=== PATIENT | male | born 1990 | race Caucasian/White ===

== ENCOUNTER 2022-01-18 07:07 | Inpatient (IN) | payer BC ==
--- OUTSIDE RECORDS SUMMARY | 2022-01-18 07:12 | XMS REPORT | Continuity of Care Document ---
:1990 Author Organization [facility] t Address [address] [place] [address] Dr. Eaton [address] [place] [id number] Care Team Providers Name Role Phone NIRAJ BULLOCK Attending Clinician Unavailable 2, Ad[facility] Lab Attending Clinician Unavailable Niraj Bullock MD Attending Clinician Doctor Unassigned, [place] Attending Clinician Unavailable CHEMA Attending Clinician Unavailable Volodymyr Stacy DO Attending Clinician Uzair Blood MD Attending Clinician Sarahi Sumner Attending Clinician [phone] Lab, Adc Fam Pob I Attending Clinician Unavailable Caryl Juares Attending Clinician CHEMA Admitting Clinician Unavailable Uzair Blood MD Admitting Clinician Payers Payer Name Policy Type Policy Number Effective Date Expiration Date Panda ana ADALI TUCKER AETNA [id number] 2011 00:00:00 [place] [facility] [id number] 2018 00:00:00 [facility] [id number] 2018 00:00:00 Problems Condition Condition Condition Status Onset Resolution Last Treating Co mments Source Name Details Category Date Date Treatment Clinician Date Gastroesop Gastroesop Problem Active S weeny hageal hageal 5-11 Communi reflux Reflux 00:00: [facility] Chronic Problem Active [place] cough Cough 5-11 Communi 00:00: ty 00 [facility]osp[facility] Clinics Abdominal Abdominal Disease Active Uni vers pain pain 05-26 ity of 00:00: [place] 00 Medical Branch No known No known Disease Unive rs active active ity of problems problems [facility] Allergies, Adverse Reactions, Alerts Allergy Allergy Status Severity Reaction(s) Onset Inactive Treating Comm ents Source Name Type Date Date Clinician NO KNOWN Drug Active Univers ALLERGIE Class ity of S [facility] Social History Social Habit Start Date Stop Date Quantity Comments Source Exposure to Not sure [facility] SARS-CoV-2 [facility] (event) [place] Tobacco use and 2020-05-26 2020-05-26 Never used Universit y of exposure 00:00:00 00:00:00 [facility] Alcohol intake 2020-05-26 2020-05-26 Current [facility] 00:00:00 00:00:00 non-drinker of [facility] alcohol [place] (finding) Sex Assigned At [birth year] Universit y of 00:00:00 00:00:00 [facility] Smoking Status Start Date Stop Date Source Never smoker [facility] Medications Ordered Filled Start Stop Current Ordering Indication Dosage Frequency Signature Comments Components Source Medication Medication Date Date Medication? Clinician (SIG) Name Name barium 2020- No [id number] 680g 680 g, Uni vers sulfate 06-02 Oral, ity of (LIQUID E-Z 14:00: 13:39 ONCE, [facility] 60 % 00 :00 dose, Wed Med ical (w/v) oral 06/02/20 at [facility] suspension 0900, 680 g Routine FLUTICASONE Yes 1{tbl} Use 1 Uni vers PROPIONATE 3-25 tablet in ity of (FLONASE 22:47: each [place] ALLERGY nostril 2 Medical RELIEF (two) Branch NASAL) times daily. loratadine Yes 10mg Take 10 mg U nivers (CLARITIN) 3-25 by mouth ity o f 10 mg 22:47: daily. [place] tablet Medical Branch dexlansopra Yes Take by Uni vers zole 3-25 mouth ity of (DEXILANT 22:47: daily. [place] ORAL) 46 Medical Branch FLUTICASONE Yes 1{tbl} Use 1 Uni vers PROPIONATE 3-25 tablet in ity of (FLONASE 22:47: each [place] ALLERGY 46 nostril 2 Medical RELIEF (two) Branch NASAL) times daily. loratadine Yes 10mg Take 10 mg U nivers (CLARITIN) 3-25 by mouth ity o f 10 mg 22:47: daily. [place] tablet 46 Medical Branch dexlansopra Yes Take by Uni vers zole 3-25 mouth ity of (DEXILANT 22:47: daily. [place] ORAL) 46 Medical Branch FLUTICASONE Yes 1{tbl} Use 1 Uni vers PROPIONATE 3-25 tablet in ity of (FLONASE 22:47: each [place] ALLERGY 46 nostril 2 Medical RELIEF (two) Branch NASAL) times daily. loratadine Yes 10mg Take 10 mg U nivers (CLARITIN) 3-25 by mouth ity o f 10 mg 22:47: daily. [place] tablet 46 Medical Branch dexlansopra Yes Take by Uni vers zole 3-25 mouth ity of (DEXILANT 22:47: daily. [place] ORAL) 46 Medical Branch FLUTICASONE Yes 1{tbl} Use 1 Uni vers PROPIONATE 3-25 tablet in ity of (FLONASE 22:47: each [place] ALLERGY 46 nostril 2 Medical RELIEF (two) Branch NASAL) times daily. loratadine Yes 10mg Take 10 mg U nivers (CLARITIN) 3-25 by mouth ity o f 10 mg 22:47: daily. [place] tablet 46 Medical Branch dexlansopra Yes Take by Uni vers zole 3-25 mouth ity of (DEXILANT 22:47: daily. [place] ORAL) 46 Medical Branch FLUTICASONE Yes 1{tbl} Use 1 Uni vers PROPIONATE 3-25 tablet in ity of (FLONASE 22:47: each [place] ALLERGY 46 nostril 2 Medical RELIEF (two) Branch NASAL) times daily. loratadine Yes 10mg Take 10 mg U nivers (CLARITIN) 3-25 by mouth ity o f 10 mg 22:47: daily. [place] tablet 46 Medical Branch dexlansopra Yes Take by Uni vers zole 3-25 mouth ity of (DEXILANT 22:47: daily. [place] ORAL) 46 Medical Branch FLUTICASONE Yes 1{tbl} Use 1 Uni vers PROPIONATE 3-25 tablet in ity of (FLONASE 22:47: each [place] ALLERGY nostril 2 Medical RELIEF (two) Branch NASAL) times daily. loratadine Yes 10mg Take 10 mg U nivers (CLARITIN) -25 by mouth ity o f 10 mg 22:47: daily. [place] tablet 46 Medical Branch dexlansopra Yes Take by Uni vers zole 3-25 mouth ity of (DEXILANT 22:47: daily. [place] ORAL) 46 Medical Branch silver 2020- No 1{appli Apply 1 Univ ers nitrate 05-27 cator} Applicator ity of applicator 21:35: 00:00 to area(s) [place] 56 :00 once now. Medical Branch omeprazole No 40mg Take 40 mg Univers 40 mg 05-27 by mouth ity of capsule 21:35: 00:00 daily. [place] 56 :00 Medical Branch cefTRIAXone Yes 1000mg 1,000 mg, Univers (ROCEPHIN) 3-25 IV ity of 1,000 mg in 16:45: Piggyback, [place] NaCl 0.9% 00 Q24H ABX, Medic al (NS) 50 mL First dose Bra nch MINI-BAG on [place] 05/27/20 at 1145, Until Discontinu ed, 50 mL
R ovi for Anti-Infec tive: Empiric Therapy for Suspected Infection< br>Empiric Therapy Site: Abdominal< br>Duratio n of therapy: 7 days metroNIDAZO Yes 500mg 500 mg, IV Univers LE in NaCl 3-25 Infusion, ity of (iso-os) 16:45: Q8H ABX, [place] (FLAGYL 00 First dose Medica l I.V.) RTU on [place] Branch IV infusion 05/27/20 at 500 mg 1145, Until Discontinu ed, 100 mL
Reas on for Anti-Infec tive: Empiric Therapy for Suspected Infection< br>Empiric Therapy Site: Abdominal< br>Duratio n of therapy: 7 days D5W 0.45% Yes IV Univers NaCl 3-25 Infusion, ity of (1/2NS) 1 L 15:45: at 75 [place] + KCL 20 00 mL/hr, Medical mEq CONTINUOUS Branch , Starting [place] 05/27/20 at 1045, Until Discontinu ed, Routine pantoprazol Yes 40mg 40 mg, Univ ers e 3-25 Oral, ity of (PROTONIX) 14:00: DAILY, [place] EC tablet 00 First dose Medi ori 40 mg on [place] Branch 05/27/20 at 0900, Until Discontinu ed, Routine acidophilus Yes [id number] 1g Take 1 Univers 100 million 3-25 tablet by ity of cell tablet 00:00: mouth 2 [place] 00 (two) Medical times Branch daily. acidophilus Yes [id number] 1g Take 1 Univers 100 million 3-25 tablet by ity of cell tablet 00:00: mouth 2 [place] 00 (two) Medical times Branch daily. acidophilus Yes [id number] 1g Take 1 Univers 100 million 3-25 tablet by ity of cell tablet 00:00: mouth 2 [place] 00 (two) Medical times Branch daily. acidophilus Yes [id number] 1g Take 1 Univers 100 million 3-25 tablet by ity of cell tablet 00:00: mouth 2 [place] 00 (two) Medical times Branch daily. acidophilus Yes [id number] 1g Take 1 Univers 100 million 3-25 tablet by ity of cell tablet 00:00: mouth 2 [place] 00 (two) Medical times Branch daily. acidophilus Yes [id number] 1g Take 1 Univers 100 million 3-25 tablet by ity of cell tablet 00:00: mouth 2 Liabn as 00 (two) Medical times Branch daily. levoFLOXaci 2020- No [id number] 500mg Take 1 Univers n 500 mg 3-25 04-05 tablet by ity o f tablet 00:00: 04:59 mouth [place] 00 :00 every 24 Medical (twenty-fo Branch ur) hours for 10 days. metroNIDAZO 0 2020- No [id number] 500mg Take 1 Univers LE 500 mg 3-25 04-05 tablet by ity of tablet 00:00: 04:59 mouth 2 [place] 00 :00 (two) Medical times Branch daily for 10 days. levoFLOXaci 2020- No [id number] 500mg Take 1 Univers n 500 mg 05-27-05 tablet by ity o f tablet 00:00: 04:59 mouth [place] 00 :00 every 24 Medical ([facility] ur) hours for 10 days. metroNIDAZO 2020-2020- No [id number] 500mg Take 1 Univers LE 500 mg 05-27-05 tablet by ity of tablet 00:00: 04:59 mouth 2 [place] 00 :00 (two) Medical times Branch daily for 10 days. levoFLOXaci 2020- No [id number] 500mg Take 1 Univers n 500 mg 3-25 -05 tablet by ity o f tablet 00:00: 04:59 mouth [place] 00 :00 every 24 Medical ([facility] ur) hours for 10 days. metroNIDAZO 2020- No [id number] 500mg Take 1 Univers LE 500 mg -27 06-05 tablet by ity of tablet 00:00: 04:59 mouth 2 [place] 00 :00 (two) Medical times Branch daily for 10 days. piperacilli 2020- No 3.375g 3.375 g, Univers n-tazobacta 05-26- IV ity of m (ZOSYN) 22:15: 15:33 [place]back, [place] 3.375 g in 00 :50 Q6H ABX, Medic al NaCl 0.9% First dose Bran ch (NS) 100 mL on Sun MINI-BAG 05/26/20 at 1715, Until Discontinu ed, 100 mL
R ovi for Anti-Infec tive: Empiric Therapy for Suspected Infection< br>Empiric Therapy Site: Abdominal< br>Duratio n of therapy: 7 days D5W 0.45% 2020- No IV Univers NaCl 05-26 Infusion, ity of (1/2NS) 1 L 22:15: 15:34 at 125 [place] + KCL 20 00 :06 mL/hr, Medical mEq CONTINUOUS Branch , Starting 05/26/20 at 1715, Until [place] 05/27/20 at 1034, Routine enoxaparin Yes 30mg 30 mg, Unive rs (LOVENOX) 05-26 Subcutaneo ity of injection 22:00: us, DAILY, [place] 30 mg 00 First dose Medical on Sun Branch 05/26/20 at 1700, Until Discontinu ed, Routine metroNIDAZO 2020- No 500mg 500 mg, IV Univers LE in NaCl 05-26 Piggyback, it y of (iso-os) 16:30: 21:11 Q8H ABX, [place] (FLAGYL 00 :43 First dose Medica l I.V.) RTU on Sun IV infusion 05/26/20 at 500 mg 1130, Until Discontinu ed, 100 mL
R ovi for Anti-Infec tive: Empiric Therapy for Suspected Infection< br>Empiric Therapy Site: Abdominal< br>Duratio n of therapy: 7 days levoFLOXaci 2020- No 750mg 750 mg, IV Univers n in D5W 05-26 Piggyback, ity of (LEVAQUIN) 16:30: 21:11 Q24H ABX, [place] 750 mg/150 00 :43 First dose Med ical mL on Sun Branch Piggyback 05/26/20 at 750 mg 1130, Until Discontinu ed, 150 mL
R ovi for Anti-Infec tive: Empiric Therapy for Suspected Infection< br>Empiric Therapy Site: Abdominal< br>Duratio n of therapy: 72 hours morpHINE 2020- No 4mg 4 mg, Slow Un walt injection 4 05-26 IV Push, ity of mg 15:45: 14:50 ONCE, 1 00 :00 dose, Sun Medical 05/26/20 at Branch 1045, STAT NaCl 0.9% 2020- No 1000mL at 125 Uni vers (NS) IV 05-26 mL/hr, IV ity of infusion 15:15: 21:12 Infusion, [place] 1,000 mL 00 :21 CONTINUOUS Medic al , Starting Branch Sun05/26/20 at 1015, Until Sun05/26/20 at 1612, Routine ondansetron Yes 4mg 4 mg, Slow Univers (ZOFRAN 05-26 IV Push, ity of (PF)) 15:06: Q6HPRN, [place] injection 4 46 Starting Medi ori mg [facility] 05/26/20 at 1006, Until Discontinu ed, Routine, Nausea and Vomiting (N/V) acetaminoph Yes 650mg 650 mg, Un walt en 05-26 Oral, ity of (TYLENOL) 15:06: Q6HPRN, [place] tablet 650 31 Starting Medic al mg [facility] 05/26/20 at 1006, Until Discontinu ed, Routine, Pain (scale 1-3) dicyclomine Yes 10mg 10 mg, Univ ers (BENTYL) 05-26 Oral, QID, ity o f capsule 10 13:00: First dose [place] mg 00 on [facility] 05/26/20 at Branch 0800, Until Discontinu ed, Routine piperacilli 2020- No 3.375g 3.375 g, Univers n-tazobacta 05-26 IV ity of m (ZOSYN) 12:45: 12:29 Piggyback, [place] 3.375 g in 00 :00 ONCE, 1 Medica l NaCl 0.9% dose, [facility] Branc h (NS) 100 mL 05/26/20 at MINI-BAG 0745, 100 mL
Reas on for Anti-Infec tive: Empiric Therapy for Suspected Infection< br>Empiric Therapy Site: Abdominal< br>Duratio n of therapy: 72 hours ondansetron 2020- No 4mg 4 mg, Slow Univers (ZOFRAN 05-26 IV Push, ity of (PF)) 12:15: 11:01 ONCE, 1 [place] injection 4 00 :00 dose, Wed Med ical mg 05/26/20 at Branch 0715, ERICA iohexol 2020- No [id number] 120mL 120 mL, Univers (OMNIPAQUE 05-26 Intravenou it y of 350 11:30: 11:30 s, ONCE, 1 [place] BULK-150 00 :00 dose, Wed Medica l mL) 05/26/20 at [place] injection 0630, 120 mL Routine NaCl 0.9% 2020- No 1000mL at 999 Uni vers (NS) bolus 3-24 03-24 mL/hr, ity of infusion 11:00: 13:00 1,000 mL, [place] 1,000 mL 00 :00 IV Medical Infusion, Branch ONCE, 1 dose, 05/26/20 at 0600, STAT morpHINE 2020-0 2020- No 4mg 4 mg, Slow Un walt injection 4 05-26-24 IV Push, ity of mg 10:53: 15:07 Q4HPRN, [place] 24 :02 Starting Medical Wed Branch 05/26/20 at 0553, Until Sun05/26/20 at 1007, Routine, Pain (scale 7-10) FLUTICASONE 2016- Yes 1{tbl} Use 1 Uni vers PROPIONATE 6-01 tablet in ity of (FLONASE 19:34: each [place] ALLERGY 13 nostril 2 Medical RELIEF (two) Branch NASAL) times daily. silver Yes 1{appli Apply 1 Unive rs nitrate 6-01 cator} Applicator ity of applicator 19:34: to area(s) [place] 13 once now. Medical Branch FLUTICASONE 2016- Yes 1{tbl} Use 1 Uni vers PROPIONATE 6-01 tablet in ity of (FLONASE 19:34: each [place] ALLERGY 13 nostril 2 Medical RELIEF (two) Branch NASAL) times daily. silver Yes 1{appli Apply 1 Unive rs nitrate 6-01 cator} Applicator ity of applicator 19:34: to area(s) [place] 13 once now. Medical Branch gabapentin 2017- Yes 300mg Take 1 Univ ers 300 mg 3-02 capsule by ity of capsule 00:00: mouth [place] 00 every 8 Medical (eight) Branch hours as needed for Pain (scale 1-3). For pain scale 1-3 naproxen 2017-0 Yes 500mg Take 1 Univer s 500 mg 3-02 tablet by ity of tablet 00:00: mouth [place] 00 every 8 Medical (eight) Branch hours as needed for Pain (scale 4-6). HYDROmorphO 2017-0 Yes 1mg Take 0.5 Un walt ne 3-02 tablets by ity of (DILAUDID) 00:00: mouth [place] 2 mg tablet 00 every 4 Medic al (four) Branch hours as needed for Pain (scale 7-10). HYDROmorphO 2017- Yes 1mg Take 0.5-1 Univers ne 2 mg 3-02 tablets by ity of tablet 00:00: mouth [place] 00 every 4 Medical (four) Branch hours as needed for Pain (scale 7-10). gabapentin Yes 300mg Take 1 Univ ers 300 mg 3-02 capsule by ity of capsule 00:00: mouth [place] 00 every 8 Medical (eight) Branch hours as needed for Pain (scale 1-3). For pain scale 1-3 naproxen Yes 500mg Take 1 Univer s 500 mg 3-02 tablet by ity of tablet 00:00: mouth [place] 00 every 8 Medical (eight) Branch hours as needed for Pain (scale 4-6). HYDROmorphO Yes 1mg Take 0.5 Un walt ne 3-02 tablets by ity of (DILAUDID) 00:00: mouth [place] 2 mg tablet 00 every 4 Medic al (four) Branch hours as needed for Pain (scale 7-10). HYDROmorphO Yes 1mg Take 0.5-1 Univers ne 2 mg 3-02 tablets by ity of tablet 00:00: mouth [place] 00 every 4 Medical (four) Branch hours as needed for Pain (scale 7-10). gabapentin 2020- No 300mg Take 1 Uni vers 300 mg 3-02 03-25 capsule by ity of capsule 00:00: 00:00 mouth [place] 00 :00 every 8 Medical (eight) Branch hours as needed for Pain (scale 1-3). For pain scale 1-3 naproxen 2017-2020- No 500mg Take 1 Unive rs 500 mg 3-02 03-25 tablet by ity of tablet 00:00: 00:00 mouth [place] 00 :00 every 8 Medical (eight) Branch hours as needed for Pain (scale 4-6). HYDROmorphO 2017-0 2020- No 1mg Take 0.5 U nivers ne 3-02 03-25 tablets by ity of (DILAUDID) 00:00: 00:00 mouth [place] 2 mg tablet 00 :00 every 4 Medic al (four) Branch hours as needed for Pain (scale 7-10). HYDROmorphO 2017-0 2020- No 1mg Take 0.5-1 Univers ne 2 mg 3-04 07-25 tablets by ity o f tablet 00:00: 00:00 mouth [place] 00 :00 every 4 Medical (four) Branch hours as needed for Pain (scale 7-10). naproxen Yes 550mg Take 1 Univer s sodium 550 3-01 tablet by ity of mg tablet 00:00: mouth 2 00 (two) Medical times Branch daily with meals. naproxen Yes 550mg Take 1 Univer s sodium 550 3-01 tablet by ity of mg tablet 00:00: mouth 2 00 (two) Medical times Branch daily with meals. naproxen No 550mg Take 1 Unive rs sodium 550 3-03 07-25 tablet by ity of mg tablet 00:00: 00:00 mouth 2 [place] 00 :00 (two) Medical times Branch daily with meals. Flonase Flonase No Flonase [place] [facility] Allergy Commun i Relief Relief Relief [facility] Vital Signs Vital Name Observation Time Observation Value Comments Source Systolic blood 2020-05-27 20:09:00 115 mm[Hg] Univer sity [facility] Diastolic blood 2020-05-27 20:09:00 72 mm[Hg] Unive rsity [facility] Heart rate 2020-05-27 20:09:00 66 /min [facility] Body temperature 2020-05-27 20:09:00 36.61 Alyce [facility] Respiratory rate 2020-05-27 20:09:00 18 /min [facility] Oxygen saturation in 2020-05-27 20:09:00 100 /min [facility] Arterial blood by [facility] Pulse oximetry Branch Body weight 2020-05-27 08:49:00 71.986 kg [facility] BMI 2020-05-27 08:49:00 26.41 kg/m2 [facility] Body height 2020-05-26 15:43:00 165.1 cm [facility] BP Diastolic 2020-05-19 00:00:00 72 mm[Hg] Joshua Lanier [facility] s Height 2020-05-19 00:00:00 65 [in_i] [facility] s BMI (Body Mass 2020-05-19 00:00:00 25.7 kg/m2 [facility] s BP Systolic 2020-05-19 00:00:00 110 mm[Hg] [facility] s Body Weight 2020-05-19 00:00:00 2470.4 [oz_av] [facility] s Procedures Procedure Date / Time Performing Clinician Source Performed FERRITIN SERUM 2020-07-06 14:51:00 Niraj Bullock [facility] IRON 2020-07-06 14:51:00 Niraj Bullock [facility] VITAMIN B12, LEVEL 2020-07-06 14:51:00 Niraj Bullock [facility] FOLATE 2020-07-06 14:51:00 Niraj Bullock [facility] TOTAL IRON BINDING 2020-07-06 14:51:00 Niraj Bullock [facility] COMP. METABOLIC PANEL 2020-07-06 14:51:00 Niraj Bullock [facility] ([id number]) [facility] SEDIMENTATION RATE 2020-07-06 14:51:00 Niraj Bullock [facility] CBC WITH DIFF 2020-07-06 14:51:00 Niraj Bullock [facility] HEPATITIS B SURFACE 2020-07-06 14:51:00 Niraj Bullock [facility] ANTIBODY [facility] HEPATITIS B SURFACE 2020-07-06 14:51:00 Niraj Bullock [facility] ANTIGEN [facility] Branch HCV ANTIBODY 2020-07-06 14:51:00 Niraj Bullock [facility] HBC ANTIBODY (IGM & IGG) 2020-07-06 14:51:00 Niraj Bullock [facility] HAV ANTIBODY (IGG AND 2020-07-06 14:51:00 Niraj Bullock [facility] IGM) [facility] VITAMIN D, 25-OH 2020-07-06 14:51:00 Niraj Bullock [facility] HIV 1/2 AG-AB WITH REFLEX 2020-07-06 14:51:00 Zora Bullock [facility] PHYSICIAN ORDERS 2020-07-06 05:01:00 Doctor Unassigned, [facility] [place] UPPER GI SERIES 2020-06-02 13:50:17 Niraj Bullock [facility] [place] BARIUM SWALLOW 2020-06-02 13:47:48 Sofi [facility] ESOPHAGUS [facility] Branch XR CHEST 2 VW 2020-05-27 19:03:43 Niraj Bullock [facility] CLOSTRIDIUM DIFFICILE 2020-05-27 15:21:00 Jeremi [facility] TOXIN [facility] C-REACTIVE PROTEIN 2020-05-27 11:41:00 Blake Larkin [facility] BASIC METABOLIC PANEL 2020-05-27 11:41:00 Uzair Blood [facility] (NA, K, CL, CO2, GLUCOSE, Medica l Branch BUN, CREATININE, CA) CBC WITH DIFF 2020-05-27 11:41:00 Uzair Blood [facility] CT ABDOMEN PELVIS W 2020-05-26 11:22:32 Volodymyr Stacy [facility] CONTRAST [facility] LIPASE 2020-05-26 10:58:00 Singer [facility] COMP. METABOLIC PANEL 2020-05-26 10:58:00 Singer [facility] ([id number]) Medical Branch LIPID PANEL ([id number])(TOTAL 2020-05-26 10:58:00 Volodymyr Stacy [facility] CHOLESTEROL, Medical Branch TRIGLYCERIDES, HDL) CBC WITH DIFF 2020-05-26 10:58:00 Singer [facility] URINALYSIS 2020-05-26 10:58:00 Singer [facility] COVID-19 (ID NOW RAPID 2020-05-26 10:58:00 Volodymyr Stacy [facility] TESTING) Medical Branch LAB ONLY COVID 2020-05-26 10:58:00 Singer Volodymyr [facility] INTERPRETATION [facility] NOTICE OF PRIVACY 2020-05-26 10:41:26 Doctor Lor Baez [facility] [place] PRACTICES [place] [facility] CONSENT/REFUSAL FOR 2020-05-26 10:40:53 Doctor Leonor Baez [facility] DIAGNOSIS AND TREATMENT [place] [facility] Plan of Care Planned Activity Planned Date Details Comments Source Diagnostic Test 2020-05-19 rapid SARS CoV 2 Ag, Swee [facility] Pending 00:00:00 QL [place], respiratory Hospital Clinics specimen [code = rapid SARS CoV 2 Ag, QL [place], respiratory specimen] Instructions [facility] Clinic s Encounters Start End Encounter Admission Attending Care Care Encounter Source Date/Time Date/Time Type Type Clinicians Facility Department ID 2021-01-02 Emergency [facility] [id number] Univers 08:03:57 ity of [facility] 2020-07-06 2020-07-06 Outpatient R KELLY [facility] [id number] Univers 10:15:00 10:15:00 NIRAJ Laughlin [facility] 2020-07-06 2020-07-06 Arborist 2, Adc Lab [facility] [id number] Univers 09:28:56 09:43:56 Visit Niraj Bullock 350.1.1 3.10 ity of [place] [id number] [place] Profess[place] [id number] Mi dical [facility] [address] Branch Building 2020-07-06 2020-07-06 Orders Doctor MAURILIO [id number] Univers 00:00:00 00:00:00 Only CONOR Baez [id number] ity of [place] [facility] [id number] [place] [id number] [place] [address] Branch 2020-06-06 2020-06-06 Outpatient [facility] 287 [place] 01:03:00 01:03:00 _L 404 Commun i ty Hospita l Clinics 2020-06-02 2020-06-02 [facility] [id number] Univers 07:45:20 23:59:00 Encounter Niraj laughlin [id number] ity of [place] [id number] [facility] [id number] [facility] 807 [place] 2020-06-02 2020-06-02 [facility] [id number] Univers 07:43:14 07:44:00 Encounter Niraj laughlin [id number] ity of [place] [id number] [facility] [id number] [facility] 807 Branch 2020-06-02 2020-06-02 Outpatient R [facility] [id number] Univers 00:00:00 00:00:00 NIRAJ Laughlin o f [facility] 2020-05-26 2020-05-27 Emergency Volodymyr Stacy [facility] [id number]. [id number] Univers 05:43:00 17:47:00 Uzair Blood [id number] ity of [place] [id number] [facility] [id number] [facility] 081 Branch 2020-05-19 2020-05-19 Outpatient [facility] 287 0 [place] 10:57:00 10:57:00 _L 317 Commun i ty Hospita l Clinics 2020-05-19 2020-05-19 Outpatient [facility] 1e7 [id number] 00:00:00 00:00:00 , Sarahi [id number] Roselyn [id number] 2020-05-19 2020-05-19 Sarahi Dempsey [facility] [place] [facility] [place] 202 [id number] [place] 00:00:00 00:00:00 [facility] ayde burgess, ZACKP-C: [facility] - ty [address] [place] [address] Clinics [address], [place] [address] , Ph. 2020-04-10 2020-04-10 Laboratory Lab, Adc Fam Pob I [facility] [id number]. [id number] Univers 09:24:25 09:44:25 Only [place], Caryl [facility] [id number] ity of [place] [id number] [place] as Professio [id number] [facility] 044 [place] Office Building One 2020-04-10 2020-04-10 Outpatient R [facility] [facility] [id number] [employer] 09:40:00 09:40:00 ity of [facility] 2020-04-10 2020-04-10 Letter Doctor MAURILIO [id number] Univers 00:00:00 00:00:00 (Out) Unassigned, CONOR [id number] ity of [place] [facility] [id number] [place] as [phone] [address] Results Test Description Test Time Test Comments Results Result Comments Source FOLATE 2020-07-07 01:36:38 Test Item Value Reference Range Interpretation Comme nts FOLATE SER (test code = 5727124676) >20.0 3.0-20.0 H Lab Interpretation (test code = 58607-4) [facility]normal [facility]2020-07-07 01:19:14 Test Item Value Reference Range Interpretation Comments HAV Total (test code = 6737363575) Negative HAVT Semi-Quantitative (test code = 6145575495) [facility] SURFACE [id number] 01:19:14 Test Item Value Reference Range Interpretation Comments HBsAB (test code = Positive 0167832203) HBsAb >1000.00 mIU/mL Semi-Quantitative (test code = 7114842599) MAT (test code = Interpretation: MAT) ?Hepatitis B Surface Antibody ? Negative - Patient is considered to be not immune to infection with HBV. ? ? Positive - Anti-HBs detected at greater than or equal to 12 mIU/mL. ?Patient is considered to be immune to infection with HBV. ? [facility] (IGM & IGG)2020-07-07 01:19:14 Test Item Value Reference Range Interpretation Comments HBC (test code = 2535069371) Negative HBC Semi-Quantitative (test code = 4074477635) [facility] [id number] 01:19:14 Test Item Value Reference Range Interpretation Comments HCV Ab (test code = 94442-7) Negative HCV Semi-Quantitative (test code = 01849-1) [facility] B12, [id number] 01:16:52 Test Item Value Reference Range Interpretation Comments VIT B12 (test code = 541 pg/mL 240-930 8930015525) MAT (test code = MAT) Biotin has been reported to cause a positive bias, interpret results relative to patient's use of biotin. Lab Interpretation (test Normal code = 82222-6) [facility] SURFACE [id number] 01:02:08 Test Item Value Reference Range Interpretation Comments HBsAg Semi-Quantitative (test code = Negative Negative 5195-3) [facility] D, [id number] 00:56:30 Test Item Value Reference Range Interpretation Comments VIT D 25OH (test code = 31 ng/mL 25-80 25896-4) MAT (test code = MAT) Deficiency: <20 ng/mLInsufficiency : 20-24 ng/mLOptimal: 25-80 ng/mL Lab Interpretation (test Normal code = 36038-2) [facility] CenterSEDIMENTATION [id number] 17:04:51 Test Item Value Reference Range Interpretation Comments ESR (test code = See_Comment H [Automated message] 0139228855) The system [employer] generated this result transmitted ref erence range: 0 - 10 m m/HR. The reference r rogelio was not used to interpret this result as normal/abnor mal. Lab Interpretation (test Abnormal code = 55431-8) [facility]HIV [facility]2 AG-AB WITH [id number] 16:58:31 Test Item Value Reference Range Interpretation Comments HIV Negative Negative Semi-quantitative (test code = 00943-6) MAT (test code = Non-reactive for HIV-1 MAT) antigen and HIV-1/HIV-2 antibodies. ?No laboratory evidence of HIV infection. ?Repeat in 2-4 weeks if acute HIV infection is suspected. [facility] CenterFERRITIN [id number] 16:52:32 Test Item Value Reference Range Interpretation Comments FERRITIN (test code = 44.8 ng/mL 18.0-464.0 4466884979) MAT (test code = MAT) Biotin has been reported to cause a negative bias, interpret results relative to patient's use of biotin. Lab Interpretation (test Normal code = 33458-3) [facility] [id number] 16:35:27 Test Item Value Reference Range Interpretation Comments TIBC (test code = 2897732605) 231 ug/dL 250-410 L % FE SAT (test code = 0413205783) 19 % 20-50 L Lab Interpretation (test code = Abnormal 89726-7) [facility]. METABOLIC PANEL (20976)2020-07-06 16:17:22 Test Item Value Reference Range Interpretation Comments NA (test code = 142 mmol/L 135-145 7365651505) K (test code = 4.7 mmol/L 3.5-5.0 0711802319) CL (test code = 102 mmol/L 98-108 7587381262) CO2 TOTAL (test code 30 mmol/L 23-31 = 9742826238) AGAP (test code = 2-16 0600327190) BUN (test code = 12 mg/dL 7-23 9683605891) GLUCOSE (test code = 105 mg/dL 70-110 3912607463) CREATININE (test code 0.77 mg/dL 0.60-1.25 = 9734890703) TOTAL BILI (test code 0.4 mg/dL 0.1-1.1 = 4318994646) CALCIUM (test code = 9.6 mg/dL 8.6-10.6 9777252318) T PROTEIN (test code 7.1 g/dL 6.3-8.2 = 4444969210) ALBUMIN (test code = 4.3 g/dL 3.5-5.0 7757822546) ALK PHOS (test code = 74 U/L 34-122 0052161570) ALTv (test code = 27 U/L 5-50 1742-6) AST(SGOT) (test code 25 U/L 1340 = 8076385251) eGFR (test code = mL/min/1.73m2 5418132830) MAT (test code = MAT) Association of Glomerular Filtration Rate (GFR) and Staging of Kidney Disease* + + +- +| GFR (mL/min/1.73 m2) ?| With Kidney Damage ?| ?Without Kidney Damage+ ------+ ----+ ------+| ?>90 ?| ?Stage one ?| ? Normal ?+ -+ + -+| ?60-89 ?| ?Stage two ?| ? Decreased GFR ? + + +- +| ?30-59 ?| ?Stage three ?| ? Stage three ? + + +- +| ?15-29 ?| ?Stage four ? | ? Stage four ?+ -+ + -+| ?<15 (or dialysis) ? ?| ?Stage five ? | ? Stage five ?+ -+ + -+ *Each stage assumes the associated GFR level has been in effect for at least three months. ?Stages 1 to 5, with or without kidney disease, indicate chronic kidney disease. Notes: Determination of stages one and two (with eGFR >59mL/min/1.73 m2) requires estimation of kidney damage for at least three months as defined by structural or functional abnormalities of the kidney, manifested by either:Pathological abnormalities or Markers of kidney damage (including abnormalities in the composition of the blood or urine or abnormalities in imaging tests). [facility] CenterIRON2021-[facility] 16:16:46 Test Item Value Reference Range Interpretation Comments IRON (test code = 0590539474) 43 ug/dL 50-160 L Lab Interpretation (test code = Abnormal 51172-5) [facility] WITH [id number] 15:23:58 Test Item Value Reference Range Interpretation Comments WBC (test code = See_Comment [Automated 5562-2) message] The sy stem which generated this result transmitted reference range : 4.20 - 10.70 10*3/?L. The reference range was not used to interpret this result as normal/abnormal . RBC (test code = See_Comment [Automated 789-8) message] The sy stem which generated this result transmitted reference range : 4.26 - 5.52 10*6/?L. The reference range was not used to interpret this result as normal/abnormal . HGB (test code = 13.7 g/dL 12.2-16.4 718-7) HCT (test code = 43.8 % 38.4-49.3 4544-3) MCV (test code = 83.7 fL 81.7-95.6 787-2) MCH (test code = 26.2 pg 26.1-32.7 785-6) MCHC (test code = 31.3 g/dL 31.2-35.0 786-4) RDW-SD (test code = 48.9 fL 38.5-51.6 43285-0) RDW-CV (test code = 15.9 % 12.1-15.4 H 788-0) PLT (test code = See_Comment [Automated 777-3) message] The sy stem which generated this result transmitted reference range : 150 - 328 10*3/ ?L. The reference r rogelio was not used to interpret this result as normal/abnormal . MPV (test code = 10.5 fL 9.8-13.0 35759-5) NRBC/100 WBC (test See_Comment [Automat ed code = 5528771684) message] The system which generated this result transmitted reference range : 0.0 - 10.0 /100 WBCs. The refer ence range was not u sed to interpret th is result as normal/abnormal . NRBC x10^3 (test code <0.01 See_Comment [Auto mated = 9300787302) message] The s ystem which generated this result transmitted reference range : 10*3/?L. The reference range was not used to interpret this result as normal/abnormal . GRAN MAT (NEUT) % 87.4 % (test code = 770-8) IMM GRAN % (test code 0.70 % = 3053744440) LYMPH % (test code = 8.3 % 736-9) MONO % (test code = 3.0 % 5905-5) EOS % (test code = 0.3 % 713-8) BASO % (test code = 0.3 % 706-2) GRAN MAT x10^3(ANC) 6.44 10*3/uL 1.99-6.95 (test code = 8246498035) IMM GRAN x10^3 (test 0.05 10*3/uL 0.00-0.06 code = 8465695601) LYMPH x10^3 (test code 0.61 10*3/uL 1.09-3.23 L = 731-0) MONO x10^3 (test code 0.22 10*3/uL 0.36-1.02 L = 742-7) EOS x10^3 (test code = <0.03 0.06-0.53 L 711-2) BASO x10^3 (test code <0.03 0.01-0.09 = 704-7) Lab Interpretation Abnormal (test code = 15185-9) [facility] UPPER GI [id number] 13:57:49HISTORY: Cough. Evaluate for GERD TECHNIQUE: Upper GI series is completed using barium and gas producingparticles. Multiple digital spot images of the gastroesophageal junction,stomach, duodenum and proximal jejunum are obtained the patient in severaldifferent positions. FINDINGS: No hiatal hernia or gastroesophageal reflux was detected. Stomachand duodenum show normal peristalsis, contour and mucosal lining. Noulcerations noted in the mucosa lining of the stomach, duodenum or theproximal jejunum. CONCLUSIONS: Normal study. [facility], Radiant Results Inft User - 06/02/2020 8:58 AM CDTHISTORY: Cough. Evaluate for GERDTECHNIQUE: Upper GI series is completed using barium and gas producingparticles. Multiple digital spot images of the gastroesophageal junction,stomach, duodenum and proximal jejunum are obtained the patient in severaldifferent positions.FINDINGS: No hiatal hernia or gastroesophageal reflux was detected. Stomachand duodenum show normal peristalsis, contour and mucosal lining. Noulcerations noted in the mucosa lining of the stomach, duodenum or theproximal jejunum. CONCLUSIONS: Normal study.[facility] BARIUM SWALLOW [id number] 13:55:03HISTORY: Chronic cough. Evaluate for GERD TECHNIQUE: Barium swallow/esophagram were obtained using ov erheadradiography technique as well as digital fluoroscopic technique done by nhwith the patient in multiple positions. FINDINGS: Swallowing function appear normal. Esophagus appears of normalsize and shape with no focal mucosal lesions. No stricture or diverticulaseen. I was unable to demonstrate hiatal hernia with Valsalva technique. Nogastroesophageal reflux was detected. Sluggish peristalsis was noted in thelower esophagus allowing prolonged retention of the barium in theesophageal lumen. CONCLUSIONS: Slightly sluggish peristalsis noted in the lower esophagus.Otherwise normal study. [facility], Radiant Results Inft User - 06/02/2020 8:56 AM CDTHISTORY: Chronic cough. Evaluate for GERDTECHNIQUE: Barium swallow/esophagram were obtained using overheadradiography technique as well as digital fluoroscopic technique done by nhwith the patient in multiple positions.FINDINGS: Swallowing function appear normal. Esophagus appears of normalsize and shape with no focal mucosal lesions. No stricture or diverti culaseen. I was unable to demonstrate hiatal hernia with Valsalva technique. Nogastroesophageal reflux was detected. Sluggish peristalsis was noted in thelower esophagus allowing prolonged retention ofthe barium in theesophageal lumen.CONCLUSIONS: Slightly sluggish peristalsis noted in the lower esoph rashida.Otherwise normal study.[facility] CenterCLOSTRIDIUM DIFFICILE [id number] 20:33:34 Test Item Value Reference Range Interpretation Comments Clostridioides (Clostridium) Negative Negative difficile (test code = 73351-5) Lab Interpretation (test code = Normal 50922-3) [facility] CenterXR CHEST 2 [id number] 19:34:38No acute cardiopulmonary abnormality. PROCEDURE: XR CHEST 2 VW 05/27/2020 1:52 PM CLINICAL INDICATION: Cough COMPARISON: Radiograph of 05/03/2016 TECHNIQUE: PA and lateral views of the chest FINDINGS: Thelungs are clear. There is no pleural effusion. ?No pneumothorax. The cardiac size is normal. No aggressive osseous lesion. [facility], Radiant Results Inft User - 05/27/2020 2:35 PM CDTPROCEDURE: XR CHEST 2 VW 05/27/2020 1:52 PMCLINICAL INDICATION: Cough COMPARISON: Radiograph of 05/03/2016TECHNIQUE: PA and lateral views of the chestFINDINGS:The lungs are clear. There is no pleural effusion. No pneumothorax. The cardiac size is normal. No aggressive osseous lesion.IMPRESSIONNo acute cardiopulmonary abnormality.[facility] CenterC-REACTIVE [id number] 17:43:52 Test Item Value Reference Range Interpretation Comments CRP (test code = 8953571487) 13.4 mg/dL <0.8 H Lab Interpretation (test code = Abnormal 25410-5) [facility] Metabolic Panel (NA, K, CL, CO2, GLUCOSE, BUN, CREATININE, CA)2020-05-27 12:26:34 Test Item Value Reference Range Interpretation Comments NA (test code = 140 mmol/L 135-145 5876427138) K (test code = 4.5 mmol/L 3.5-5.0 6986995851) CL (test code = 105 mmol/L 98-108 3319406345) CO2 TOTAL (test code = 30 mmol/L 23-31 7433996040) AGAP (test code = 2-16 8280046033) BUN (test code = 7 mg/dL 7-23 2132501111) GLUCOSE (test code = 116 mg/dL 70-110 H 2109600593) CREATININE (test code = 0.96 mg/dL 0.60-1.25 5304728381) CALCIUM (test code = 8.7 mg/dL 8.6-10.6 5601245357) eGFR Calculation mL/min/1.73m2 (Non-) (test code = 7347299512) eGFR Calculation mL/min/1.73m2 () (test code = 9393759716) MAT (test code = MAT) Association of Glomerular Filtration Rate (GFR) and Staging of Kidney Disease* + --+ --+ ------+| GFR (mL/min/1.73 m2) ?| With Kidney Damage ?| ?Without Kidney Damage+ --------+ --------+ +| ?>90 ?| ?Stage one ?| ? Normal ?+ ---+ ---+ -------+| ?60-89 ?| ?Stage two ?| ? Decreased GFR ? + --+ --+ ------+| ?30-59 ?| ?Stage three ?| ? Stage three ? + --+ --+ ------+| ?15-29 ?| ?Stage four ? | ? Stage four ?+ ---+ ---+ -------+| ?<15 (or dialysis) ? ?| ?Stage five ? | ? Stage five ?+ ---+ ---+ -------+ *Each stage assumes the associated GFR level has been in effect for at least three months. ?Stages 1 to 5, with or without kidney disease, indicate chronic kidney disease. Notes: Determination of stages one and two (with eGFR >59mL/min/1.73 m2) requires estimation of kidney damage for at least three months as defined by structural or functional abnormalities of the kidney, manifested by either:Pathological abnormalities or Markers of kidney damage (including abnormalities in the composition of the blood or urine or abnormalities in imaging tests). Lab Interpretation Abnormal (test code = 36372-4) [facility] with [id number] 12:15:11 Test Item Value Reference Range Interpretation Comments WBC (test code = See_Comment [Automated 1290-2) message] The sy stem which generated this result transmitted reference range : 4.20 - 10.70 10*3/?L. The reference range was not used to interpret this result as normal/abnormal . RBC (test code = See_Comment [Automated 679-8) message] The sy stem which generated this result transmitted reference range : 4.26 - 5.52 10*6/?L. The reference range was not used to interpret this result as normal/abnormal . HGB (test code = 11.1 g/dL 12.2-16.4 L 718-7) HCT (test code = 35.5 % 38.4-49.3 L 4544-3) MCV (test code = 81.4 fL 81.7-95.6 L 787-2) MCH (test code = 25.5 pg 26.1-32.7 L 785-6) MCHC (test code = 31.3 g/dL 31.2-35.0 786-4) RDW-SD (test code = 39.9 fL 38.5-51.6 77260-7) RDW-CV (test code = 13.4 % 12.1-15.4 788-0) PLT (test code = See_Comment [Automated 777-3) message] The sy stem which generated this result transmitted reference range : 150 - 328 10*3/ ?L. The reference r rogelio was not used to interpret this result as normal/abnormal . MPV (test code = 9.8 fL 9.8-13.0 19626-5) NRBC/100 WBC (test See_Comment [Automat ed code = 6665337160) message] The system which generated this result transmitted reference range : 0.0 - 10.0 /100 WBCs. The refer ence range was not u sed to interpret th is result as normal/abnormal . NRBC x10^3 (test code <0.01 See_Comment [Auto mated = 6947196022) message] The s ystem which generated this result transmitted reference range : 10*3/?L. The reference range was not used to interpret this result as normal/abnormal . GRAN MAT (NEUT) % 68.5 % (test code = 770-8) IMM GRAN % (test code 0.50 % = 5331900856) LYMPH % (test code = 15.5 % 736-9) MONO % (test code = 10.8 % 5905-5) EOS % (test code = 4.3 % 713-8) BASO % (test code = 0.4 % 706-2) GRAN MAT x10^3(ANC) 3.86 10*3/uL 1.99-6.95 (test code = 3917245854) IMM GRAN x10^3 (test 0.03 10*3/uL 0.00-0.06 code = 2865993143) LYMPH x10^3 (test code 0.87 10*3/uL 1.09-3.23 L = 731-0) MONO x10^3 (test code 0.61 10*3/uL 0.36-1.02 = 742-7) EOS x10^3 (test code = 0.24 10*3/uL 0.06-0.53 711-2) BASO x10^3 (test code <0.03 0.01-0.09 = 704-7) Lab Interpretation Abnormal (test code = 78744-5) [facility] COVID [id number] 03:03:50COVID DMT InterpretationInterpretation/Recommendations: Molecular NAAT Tests for Active Infection with the SARS-CoV-2 Virus: The patient has currently tested negative for the SARS-CoV-2 virus that causes COVID-19 illness. This most likely indicates that the patient does not have an active infection with the SARS-CoV-2 virus. However, infection is not completely ruled out as the false negative rate for molecular NAAT testing using a nasopharyngeal sample can be up to 30%, mostly dependent on the timing of sample collection in relation to illness onset and any deficiencies in sampling techniques. If the patient has symptoms concerning for COVID-19 illness, a repeat NAAT test (PCR, Rapid ID Now, etc.) should be performed, at which time the SARS-CoV-2 virus - if present - may have reached a detectable viral load (usually peaking by the end of the first week of symptoms). Tests for IgM and/or IgG Antibodies to the SARS-CoV-2 Virus: If the patient develops COVID-19 illness in the future, testing for IgM and IgG antibodies approximately 3 weeks after illness onset will likely indicate if the patient has produced antibodies to the SARS-CoV-2 virus. However, some patients may take longer to develop detectable antibodies, while some patients who were infected with SARS-CoV-2 may never develop antibodies. While antibodies to SARS-CoV-2 may provide some degree of immunity, at this time the strength and duration of the antibody response is unknown. Interpretation Result Comments:These interpretation comments are based upon all COVID-19 testing the patient has had at [facility], including molecular NAAT testing (more commonly known as PCR testing and Rapid ID Now testing) and antibody testing. It does not take into account any testingthat a patient has had outside of the [facility] medical record. [facility] LABORATORY SERVICESCOVID PpvikurYFGU-GoQ-6 NAAT (no units) ? ? Date ? Value ? 04/10/2020 ? Not Detected ? SARS-CoV-2 Rapid ID NOW (no units) ? ? Date ? Value ? 05/26/2020 ? Not Detected ? [facility] LABORATORY SERVICESCar[facility] CenterCT ABDOMEN PELVIS W [id number] 13:36:11 Extensive inflammatory changes involving the cecum and the appendix. Mostof the inflammatory changes appear epicentered at the cecum with upstreamdilatation of terminal ileum and fecalization of small bowel contentssuggesting stasis and delayed transit. Overall findings are thought torepresent enterocolitis and/or inflammatory bowel disease with active flarerather than appendicitis. Although, appendicitis is not completelyexcluded. No evidence of perforation. Preliminary Report Dictated by Resident: Eren Gary MD., have reviewed this study and agree with theabove report.EXAM: CT ABDOMEN AND PELVIS WITH CONTRAST HISTORY: RLQ abdominal pain, appendicitis suspected (Age >= 14y) COMPARISON: None. TECHNIQUE: Contiguous axial imaging from the level of the lung basesthrough the pubic symphysis was performed after the uncomplicatedadministration of intravenous contrast. Coronal and sagittal images werereconstructed. ?Auto mA and/or iterative reconstruction were used to reduceradiation dose. FINDINGS: LOWER THORAX: The lungs bases are clear. LIVER: No focal hepatic lesions. Mild fatty infiltration at the falciformligament. Normal contour. GALLBLADDER AND BILIARY TREE: Nobiliary ductal dilation. No radiopaquecholelithiasis. No gallbladder wall thickening. PANCREAS: No ductal dilation. SPLEEN: No splenomegaly. ADRENAL GLANDS: No adrenal nodules. KIDNEYS: No hydronephrosis, stones, or solid masses. GI TRACT:Considerable wall thickening and mucosal hyper enhancement is seen aboutthe cecum and appendix. Possibility inflammatory changes appear to beepicentered at the cecum rather than the appendix (although the appendix issurgically inflamed and measures 1.2 cm in transverse dimension). Nodiscernible mass is identified in this location. The proximal descending colon appears collapsed. Upstream small bowelcontents demonstrates fecalization suggesting stasis and delayed transit. The distal ileum is also dilated up to 4.2 cm. The sigmoid colon is decompressed with a short segment of wall thickening,likely reactive. A 1.5 x 2 cm fluid collection connects two segments of small bowel andfavors ?intraluminal fluid (2:97) over an abscess. PERITONEUM AND RETROPERITONEUM: Small volume free fluid about the rightlower quadrant and pelvis. No free air.LYMPH NODES: Several enlarged right lower quadrant lymph nodes areidentified, likely reactive. VESSELS: Unremarkable. PELVIS/BLADDER: Bladder is decompressed. BONES AND SOFT TISSUES: No suspicious lytic or sclerotic bony lesions. Noerosions of bilateral SI joints. [facility], Radiant Results Inft User - 05/26/2020 8:37 AM CDTEXAM: CTABDOMEN AND PELVIS WITH CONTRASTHISTORY: RLQ abdominal pain, appendicitis suspected (Age >= 14y) C OMPARISON: None.TECHNIQUE: Contiguous axial imaging from the level of the lung basesthrough the pubic symphysis was performed after the uncomplicatedadministration of intravenous contrast. Coronal and sagittal images werereconstructed. Auto mA and/or iterative reconstruction were used to reduceradiation dose.FINDINGS:LOWER THORAX: The lungs bases are clear. LIVER: No focal hepatic lesions. Mild fattyinfiltration at the falciformligament. Normal contour.GALLBLADDER AND BILIARY TREE: No biliary ductal dilation. No radiopaquecholelithiasis. No gallbladder wall thickening.PANCREAS: No ductal dilation.SPLEEN: No splenomegaly.ADRENAL GLANDS: No adrenal nodules.KIDNEYS: No hydronephrosis, stones, or solid masses.GI TRACT:Considerable wall thickening and mucosal hyper enhancement is seen aboutthe cecum and appendix. Possibility inflammatory changes appear to beepicentered at the cecum rather than the ap pendix (although the appendix issurgically inflamed and measures 1.2 cm in transverse dimension). Nodiscernible mass is identified in this location.The proximal descending colon appears collapsed. Upstream small bowelcontents demonstrates fecalization suggesting stasis and delayed transit. The distal i leum is also dilated up to 4.2 cm.The sigmoid colon is decompressed with a short segment of wall thickening,likely reactive.A 1.5 x 2 cm fluid collection connects two segments of small bowel andfavors intraluminal fluid (2:97) over an abscess.PERITONEUM AND RETROPERITONEUM: Small volume free fluid about the rightlower quadrant and pelvis. No free air.LYMPH NODES: Several enlarged right lower quadrantlymph nodes areidentified, likely reactive.VESSELS: Unremarkable.PELVIS/BLADDER: Bladder is decompressed.BONES AND SOFT TISSUES: No suspicious lytic or sclerotic bony lesions. Noerosions of bilateral SI joints.IMPRESSIONExtensive inflammatory changes involving the cecum and the appendix. Mostof the inflammatory changes appear epicentered at the cecum with upstreamdilatation of terminal ileum and fecalization of small bowel contentssuggesting stasis and delayed transit. Overall findings are thought to represent enterocolitis and/or inflammatory bowel disease with active flarerather than appendicitis.Although, appendicitis is not completelyexcluded. No evidence of perforation.Preliminary Report Dictated by Resident: Eren Babb MD., have reviewed this study and agree with theabove report.[facility] CenterURINALYSIS2021-03-24 11:37:30 Test Item Value Reference Range Interpretation Comments APPEARANCE (test code = Clear Clear 8617038581) COLOR (test code = Yellow Yellow 4620803358) PH (test code = 4.8-8.0 4650386731) SP GRAVITY (test code = 1.003-1.030 4775295900) GLU U QUAL (test code = Normal Normal 3513105450) BLOOD (test code = Negative Negative 7666006558) KETONES (test code = Negative Negative 0267181733) PROTEIN (test code = Negative Negative 2887-8) UROBILIN (test code = Normal Normal 7284877691) BILIRUBIN (test code = Negative Negative 3668213188) NITRITE (test code = Negative Negative 0237007106) LEUK ASHLEY (test code = Negative Negative 1703359012) RBC/HPF (test code = See_Comment [Autom ated message] 8963266007) The system [employer] generated this result transmitted ref erence range: 0 - 3 HP F. The reference range was not used to int erpret this result as normal/abnormal . WBC/HPF (test code = See_Comment [Autom ated message] 3906154932) The system [employer] generated this result transmitted ref erence range: 0 - 5 HP F. The reference range was not used to int erpret this result as normal/abnormal . BACTERIA (test code = Few Negative A 5500053808) MUCOUS (test code = Slight Negative LPF A 7862089426) Lab Interpretation (test Abnormal code = 86686-6) [facility] (27653)2020-05-26 11:37:05 Test Item Value Reference Range Interpretation Comments NA (test code = 134 mmol/L 135-145 L 7828259083) K (test code = 4.7 mmol/L 3.5-5.0 3551052345) CL (test code = 103 mmol/L 98-108 2824946951) CO2 TOTAL (test code = 28 mmol/L 23-31 5364784738) AGAP (test code = 2-16 1513784613) BUN (test code = 10 mg/dL 7-23 4399547902) GLUCOSE (test code = 113 mg/dL 70-110 H 6311316245) CREATININE (test code = 0.95 mg/dL 0.60-1.25 4975006908) TOTAL BILI (test code = 0.5 mg/dL 0.1-1.0 9103614988) CALCIUM (test code = 9.3 mg/dL 8.6-10.6 8839090657) T PROTEIN (test code = 7.8 g/dL 6.3-8.2 0688528804) ALBUMIN (test code = 4.2 g/dL 3.5-5.0 4559197810) ALK PHOS (test code = 96 U/L 34-122 4581202976) ALTv (test code = 21 U/L 5-50 1742-6) AST(SGOT) (test code = 24 U/L 13-40 8372897716) eGFR Calculation mL/min/1.73m2 (Non-) (test code = 7625614963) eGFR Calculation mL/min/1.73m2 () (test code = 4120352455) MAT (test code = MAT) Association of Glomerular Filtration Rate (GFR) and Staging of Kidney Disease* + --+ --+ ------+| GFR (mL/min/1.73 m2) ?| With Kidney Damage ?| ?Without Kidney Damage+ --------+ --------+ +| ?>90 ?| ?Stage one ?| ? Normal ?+ ---+ ---+ -------+| ?60-89 ?| ?Stage two ?| ? Decreased GFR ? + --+ --+ ------+| ?30-59 ?| ?Stage three ?| ? Stage three ? + --+ --+ ------+| ?15-29 ?| ?Stage four ? | ? Stage four ?+ ---+ ---+ -------+| ?<15 (or dialysis) ? ?| ?Stage five ? | ? Stage five ?+ ---+ ---+ -------+ *Each stage assumes the associated GFR level has been in effect for at least three months. ?Stages 1 to 5, with or without kidney disease, indicate chronic kidney disease. Notes: Determination of stages one and two (with eGFR >59mL/min/1.73 m2) requires estimation of kidney damage for at least three months as defined by structural or functional abnormalities of the kidney, manifested by either:Pathological abnormalities or Markers of kidney damage (including abnormalities in the composition of the blood or urine or abnormalities in imaging tests). Lab Interpretation Abnormal (test code = 38484-9) [facility] (24813)(TOTAL CHOLESTEROL, TRIGLYCERIDES, HDL)2020-05-26 11:29:56 Test Item Value Reference Range Interpretation Comments CHOL (test code = 143 mg/dL 120-200 5959048821) HDL (test code = 32 mg/dL >40 L 8310334390) HDLC RATIO (test code = See_Comment [Au tomated message] 6293610324) The system [employer] generated this result transmit maximilian reference range : <=5.0. The refe rence range was not u sed to interpret th is result as normal/abnormal . TRIG (test code = 85 mg/dL 30-170 7926034888) LDL CHOL (test code = 94 mg/dL See_Comment [Auto mated message] 39460-9) The system [employer] generated this result transmit maximilian reference range : <=160. The refe rence range was not u sed to interpret th is result as normal/abnormal . VLDL (test code = 17 mg/dL 5-60 0334036339) Lab Interpretation (test Abnormal code = 43511-6) [facility] 11:29:41 Test Item Value Reference Range Interpretation Comments LIPASE (test code = 2795771476) 41 U/L 0-220 Lab Interpretation (test code = Normal 75398-7) [facility] (ID NOW RAPID TESTING)2020-05-26 11:20:15 Test Item Value Reference Range Interpretation Comments SARS-CoV-2 Rapid ID NOW Not Detected Not Detected (test code = 23972-8) MAT (test code = MAT) ID NOW COVID-19 Assay is an isothermal nucleic acid amplification test intended for the qualitative detection of nucleic acid from SARS-CoV-2 viral RNA in nasopharyngeal ([employer]) specimens. It is used under Emergency Use Authorization (EUA) by FDA. The limit of detection (LOD) of the assay is 125 Genome Equivalents/mL. A positive result is indicative of the presence of SARS-CoV-2 RNA. ?Clinical correlation with patient history and other diagnostic information is necessary to determine patient infection status. A negative (Not Detected) result does not preclude SARS-CoV-2 infection. In patients with clinical symptoms and other tests that are consistent with SARS-CoV-2 infection, negative results should be treated as presumptive negative and a new specimen should be tested with alternative PCR molecular test. Invalid: Please collect a new specimen for repeat patient testing if clinically indicated. Lab Interpretation Normal (test code = 20523-8) [facility] WITH [id number] 11:05:56 Test Item Value Reference Range Interpretation Comments WBC (test code = See_Comment H [Automated 5890-2) message] The system which generated this result transmit maximilian reference range : 4.20 - 10.70 10*3/?L. The reference range was not used to interpret this result as normal/abnormal . RBC (test code = See_Comment [Automated 839-8) message] The system which generated this result transmit maximilian reference range : 4.26 - 5.52 10*6/?L. The reference range was not used to interpret this result as normal/abnormal . HGB (test code = 13.0 g/dL 12.2-16.4 718-7) HCT (test code = 41.3 % 38.4-49.3 4544-3) MCV (test code = 79.7 fL 81.7-95.6 L 787-2) MCH (test code = 25.1 pg 26.1-32.7 L 785-6) MCHC (test code = 31.5 g/dL 31.2-35.0 786-4) RDW-SD (test code = 38.4 fL 38.5-51.6 L 48116-8) RDW-CV (test code = 13.3 % 12.1-15.4 788-0) PLT (test code = See_Comment H [Automated 777-3) message] The system which generated this result transmit maximilian reference range : 150 - 328 10*3/ ?L. The reference range was not u sed to interpret th is result as normal/abnormal . MPV (test code = 9.6 fL 9.8-13.0 L 33021-2) NRBC/100 WBC (test See_Comment [Automat ed code = 5059610245) message] The system which generated this result transmit maximilian reference range : 0.0 - 10.0 /100 WBCs. The reference range was not used to interpret this result as normal/abnormal . NRBC x10^3 (test code <0.01 See_Comment [Auto mated = 0088254691) message] The system which generated this result transmit maximilian reference range : 10*3/?L. The reference range was not used to interpret this result as normal/abnormal . GRAN MAT (NEUT) % 84.5 % (test code = 770-8) IMM GRAN % (test code 0.50 % = 6999008527) LYMPH % (test code = 5.7 % 736-9) MONO % (test code = 8.6 % 5905-5) EOS % (test code = 0.5 % 713-8) BASO % (test code = 0.2 % 706-2) GRAN MAT x10^3(ANC) 11.06 10*3/uL 1.99-6.95 H (test code = 0636171143) IMM GRAN x10^3 (test 0.07 10*3/uL 0.00-0.06 H code = 4900420025) LYMPH x10^3 (test code 0.74 10*3/uL 1.09-3.23 L = 731-0) MONO x10^3 (test code 1.12 10*3/uL 0.36-1.02 H = 742-7) EOS x10^3 (test code = 0.06 10*3/uL 0.06-0.53 711-2) BASO x10^3 (test code 0.03 10*3/uL 0.01-0.09 = 704-7) Lab Interpretation Abnormal (test code = 03957-2) [facility] ([facility]OVID-19) Ag [Presence] in Respiratory specimen by Rapid [id number] 09:27:00 Test Item Value Reference Range Interpretation Comments SARS CoV 2 (test code = SARS CoV 2) negative [facility]"
[2022-01-18] MEDS ORDERED: FAMOTIDINE 20 MG/2 ML VIAL IV ONE (08:08)
[2022-01-18] MEDS ORDERED: ONDANSETRON 4 MG/2 ML VIAL ONE ×2 (08:08→17:06)
[2022-01-18] MEDS ORDERED: NA CHLORIDE 0.9% 1,000 ML ONE ×2 (08:08→11:15)
[2022-01-18] MEDS ORDERED: MORPHINE 4 MG/ML SYR ONE ×3 (08:09→17:06)
[2022-01-18 09:34] LABS: Absolute Lymphocytes (CBC) 1.2 K/uL (0.7-4.9); Hematocrit 44.9 % (39.6-49.0); Lymphocytes % 17.5 % (15.3-44.8); MCV 87.2 fL (80-100); MPV 9.1 fL (7.6-11.3); RBC Red Blood Cell Count 5.15 M/uL (4.33-5.43)
[2022-01-18 09:58] LABS: Albumin 3.3 g/dL (3.4-5.0); Bilirubin Total 0.5 mg/dL (0.2-1.0); Potassium 4.4 mmol/L (3.5-5.1); Protein, Total 6.8 g/dL (6.4-8.2)
--- NOTE | 2022-01-18 10:51 | RAD REPORT ---
EXAM DESCRIPTION: CT - Abdomen Pelvis W Contrast - 01/18/2022 10:19 am CLINICAL HISTORY: Abdominal pain COMPARISON: August 2021 TECHNIQUE: Computed axial tomography of the abdomen pelvis was obtained. 100 cc Isovue-300 was admin istered intravenously. Oral contrast was not requested which limits evaluation of bowel and appendix All CT scans are performed using dose optimization technique as appropriate and may include automated exposure control or mA/KV adjustment according to patient size. FINDINGS: The liver, spleen, pancreas, adrenal and kidneys appear unremarkable. Dilatation of distal ileum 5.4 centimeters. It contains stool. Wall is mildly thickened. Jejunum norm al caliber. Mild thickening of the wall of the cecum Small amount ascites. The bladder is distended. IMPRESSION: Moderate to marked dilatation distal ileum. Given the history of Crohn's disease this ma y be secondary to a stricture. Mild thickening of the wall of the distal ileum and cecum likely indicating inflammation
[2022-01-18] MEDS ORDERED: METRONIDAZOLE 500mg IVPB 500 MG/100 ML BAG IV ONE ×2 (11:15→16:59)
[2022-01-18] MEDS ORDERED: CIPROFLOXACIN 400mg IV 400 MG/200 ML BAG IV ONE (11:15)
[2022-01-18] MEDS ORDERED: METHYLPREDNISOLONE 125 MG INJ ONE (11:15)
--- NOTE | 2022-01-18 12:00 | ER ---
Nurse's Notes [facility] Kirsten Name: Jose Martin Fritz Age: 31 yrs Sex: Male : 1990 Arrival Date: 01/18/2022 Time: 07:09 Bed 17 Private MD: Diagnosis: Abdominal pain, Generalized;Crohn's disease of small intestine with intestinal obstruction-moderate to marked dilation distal ileum;Other and unspecified intestinal obstruction Presentation: 01/18 07:38 Chief complaint: Patient states: mid abd pain x 2 weeks, saw Dr. Sumner on Sunday and jl7 started cipro and flagyl, and instructed me to come to ED if pain continues. Denies N/V/D. Coronavirus screen: At this time, the client does not indicate any symptoms associated with coronavirus-19. Ebola Screen: No symptoms or risks identified at this time. Initial Sepsis Screen: Does the patient meet any 2 criteria? No. Patient's initial sepsis screen is negative. Does the patient have a suspected source of infection? No. Patient's initial sepsis screen is negative. Risk Assessment: Do you want to hurt yourself or someone else? Patient reports no desire to harm self or others. Onset of symptoms was January 04, 2022. 07:38 Method Of Arrival: Ambulatory [facility] 07:38 Acuity: FILIPE 3 jl7 Triage Assessment: 07:39 General: Appears in no apparent distress. uncomfortable, Behavior is calm, cooperative, jl7 appropriate for age. Pain: Complains of pain in umbilical area Pain currently is 8 out of 10 on a pain scale. GI: Reports lower abdominal pain, upper abdominal pain. Historical: - Allergies: 07:39 No Known Allergies; jl7 - Home Meds: 07:39 budesonide 3 mg oral CECX 1 caps TID [Active]; jl7 - PMHx: 07:39 Chron's; jl7 - PSHx: 07:39 None; jl7 - Immunization history:: Client reports receiving the 2nd dose of the Covid vaccine. - Social history:: Smoking status: Patient denies any tobacco usage or history of. - Family history:: not pertinent. Screenin:28 Abuse screen: Denies threats or abuse. Nutritional screening: No deficits noted. ll1 Tuberculosis screening: No symptoms or risk factors identified. Fall Risk IV access (20 points). Total Haq Fall Scale indicates No Risk (0-24 pts). Assessment: 08:20 Reassessment: No changes from previously documented assessment. Patient and/or family ll1 updated on plan of care and expected duration. Pain level reassessed. Patient is alert, oriented x 3, equal unlabored respirations, skin warm/dry/pink. 09:00 Reassessment: No changes from previously documented assessment. Patient and/or family ll1 updated on plan of care and expected duration. Pain level reassessed. Patient is alert, oriented x 3, equal unlabored respirations, skin warm/dry/pink. 10:10 Reassessment: No changes from previously documented assessment. Patient and/or family ll1 updated on plan of care and expected duration. Pain level reassessed. Patient is alert, oriented x 3, equal unlabored respirations, skin warm/dry/pink. 11:00 General: Appears in no apparent distress. comfortable, Behavior is calm, cooperative. tp1 Pain: Denies pain. Neuro: Level of Consciousness is awake, alert, obeys commands, Oriented to person, place, time, situation. Cardiovascular: Patient's skin is warm and dry. Respiratory: Airway is patent Respiratory effort is even, unlabored. Derm: Skin is pink, warm \T\ dry. Musculoskeletal: Circulation, motion, and sensation intact. 12:27 Reassessment: Patient appears in no apparent distress at this time. No changes from tp1 previously documented assessment. Patient is alert, oriented x 3, equal unlabored respirations, skin warm/dry/pink. Patient denies pain at this time. 13:22 Reassessment: Patient appears in no apparent distress at this time. No changes from tp1 previously documented assessment. Patient is alert, oriented x 3, equal unlabored respirations, skin warm/dry/pink. Patient denies pain at this time. 19:39 Reassessment: report given to Bridget MARTINS. tp1 Vital Signs: 07:38 BP 148 / 101; Pulse 91; Resp 17; Temp 98.3; Pulse Ox 100% ; Weight 66.68 kg; Height 5 jl7 ft. 5 in. (165.10 cm); Pain 8/10; 10:10 BP 129 / 91; Pulse 63; Resp 16; ll1 11:30 BP 120 / 86; Pulse 67; Resp 16; Pulse Ox 100% on R/A; tp1 12:30 BP 123 / 80; Pulse 70; Resp 16; Pulse Ox 100% on R/A; tp1 13:23 BP 127 / 87; Pulse 62; Resp 16; Pulse Ox 100% on R/A; tp1 07:38 Body Mass Index 24.46 (66.68 kg, 165.10 cm) jl7 ED Course: 07:09 Patient arrived in ED. am2 07:35 Salvatore Chambers MD is Attending Physician. conrado 07:39 Triage completed. jl7 07:41 Arm band placed on right wrist. jl7 07:48 Bhupendra Ibarra, LAKSHMI is Primary Nurse. ll1 08:09 Inserted saline lock: 20 gauge in right antecubital area, using aseptic technique. kr3 Blood collected. 09:28 Patient has correct armband on for positive identification. Bed in low position. Call ll1 light in reach. Side rails up X 1. Cardiac monitoring not applicable on this patient. 10:20 CT Abd/Pelvis - IV Contrast Only In Process Unspecified. EDMS 11:09 No provider procedures requiring assistance completed. tp1 11:48 transfer to [facility] initiated by dr Chambers. bd 12:26 Renetta Nava MD is Hospitalizing Provider. conrado Administered Medications: 08:17 Drug: NS 0.9% 1000 ml Route: IV; Rate: 1 bolus; Site: right antecubital; ll1 10:31 Follow up: Response: No adverse reaction; IV Status: Completed infusion; IV Intake: ll1 1000ml 08:17 Drug: Pepcid (famotidine) 20 mg Route: IVP; Site: right antecubital; ll1 10:31 Follow up: Response: No adverse reaction ll1 08:17 Drug: Zofran (Ondansetron) 4 mg Route: IVP; Site: right antecubital; ll1 10:31 Follow up: Response: No adverse reaction ll1 08:17 Drug: morphine 4 mg {Note: rass 0, pain 6/10.} Route: IVP; Infused Over: 4 mins; Site: ll1 right antecubital; 10:31 Follow up: Response: No adverse reaction ll1 10:10 Drug: morphine 4 mg {Note: rass 0, pain 7/10.} Route: IVP; Infused Over: 4 mins; Site: ll1 right antecubital; 10:32 Follow up: Response: No adverse reaction; Pain is decreased; RASS: Alert and Calm (0) ll1 11:22 Drug: SOLU-Medrol (methylPrednisoLONE) 125 mg Route: IVP; Site: right antecubital; tp1 12:25 Follow up: Response: No adverse reaction tp1 11:24 Drug: NS 0.9% 1000 ml Route: IV; Rate: 125 ml/hr; Site: right antecubital; tp1 18:48 Follow up: IV Status: Infusion continued upon admission tp1 11:27 Drug: Flagyl (metroNIDAZOLE) 500 mg Volume: 100 ml; Route: IVPB; Rate: 200 ml/hr; tp1 Infused Over: 30 mins; Site: right antecubital; 12:00 Follow up: IV Status: Completed infusion; IV Intake: 100ml tp1 12:06 Drug: Cipro (ciprofloxacin) 400 mg Volume: 200 ml; Route: IVPB; Infused Over: 60 mins; tp1 Site: right antecubital; 13:00 Follow up: IV Status: Completed infusion; IV Intake: 200ml tp1 Medication: 09:28 VIS not applicable for this client. ll1 Intake: 10:31 IV: 1000ml; Total: 1000ml. ll1 12:00 IV: 100ml; Total: 1100ml. tp1 13:00 IV: 200ml; Total: 1300ml. tp1 Outcome: 11:59 ER care complete, transfer ordered by . [facility] 12:28 Decision to Hospitalize by Provider. [facility] 16:00 Admitted to ER Hold. Please see [facility] for further documentation. tp1 16:00 Condition: good 16:00 Discharge instructions given to patient, Instructed on discharge instructions. 20:05 Patient left the ED. aa9 Signatures: Dispatcher [employer] EDMS Linda Kellogg Corey, MD MD cha Leal, Jahala RN RN [email or web address] Waleska Ramirez amBhupendra Morin RN RN ll1 Patricia Bernal RN RN tp1 Maggy Hemphill RN RN aa9 Linnea Benoit RN RN kr3
--- NOTE | 2022-01-18 12:00 | EDPHYS ---
Physician Documentation [facility] Name: Jose Martin Fritz Age: 31 yrs Sex: Male : 1990 Arrival Date: 01/18/2022 Time: 07:09 Bed 17 Private MD: CHUCK Physician Salvatore Chambers HPI: 01/18 11:45 This 31 yrs old Male presents to ER via Ambulatory with complaints of conrado Abdominal Pain. 11:45 The patient presents with abdominal pain in the lower abdomen. Onset: The conrado symptoms/episode began/occurred 7 day(s) ago. The symptoms do not radiate. Associated signs and symptoms: Pertinent positives: nausea. The symptoms are described as constant, crampy. Modifying factors: The symptoms are alleviated by remaining still, the symptoms are aggravated by food, movement. Severity of pain: At its worst the pain was moderate in the emergency department the pain is unchanged. The patient has experienced similar episodes in the past, several times. Historical: - Allergies: 07:39 No Known Allergies; jl7 - Home Meds: 07:39 budesonide 3 mg oral CECX 1 caps TID [Active]; jl7 - PMHx: 07:39 Chron's; jl7 - PSHx: 07:39 None; jl7 - Immunization history:: Client reports receiving the 2nd dose of the Covid vaccine. - Social history:: Smoking status: Patient denies any tobacco usage or history of. - Family history:: not pertinent. ROS: 11:45 Constitutional: Negative for fever, chills, and weight loss, Eyes: Negative for injury, conrado pain, redness, and discharge, ENT: Negative for injury, pain, and discharge, Neck: Negative for injury, pain, and swelling, Cardiovascular: Negative for chest pain, palpitations, and edema, Respiratory: Negative for shortness of breath, cough, wheezing, and pleuritic chest pain, Back: Negative for injury and pain, : Negative for injury, bleeding, discharge, and swelling, MS/Extremity: Negative for injury and deformity, Skin: Negative for injury, rash, and discoloration, Neuro: Negative for headache, weakness, numbness, tingling, and seizure, Psych: Negative for depression, anxiety, suicide ideation, homicidal ideation, and hallucinations, Allergy/Immunology: Negative for hives, rash, and allergies, Endocrine: Negative for neck swelling, polydipsia, polyuria, polyphagia, and marked weight changes. 11:45 Abdomen/GI: Positive for abdominal pain, nausea, of the umbilical area and right lower quadrant. Exam: 11:45 Constitutional: This is a well developed, well nourished patient who is awake, alert, conrado and in no acute distress. Head/Face: Normocephalic, atraumatic. Eyes: Pupils equal round and reactive to light, extra-ocular motions intact. Lids and lashes normal. Conjunctiva and sclera are non-icteric and not injected. Cornea within normal limits. Periorbital areas with no swelling, redness, or edema. ENT: Nares patent. No nasal discharge, no septal abnormalities noted. Tympanic membranes are normal and external auditory canals are clear. Oropharynx with no redness, swelling, or masses, exudates, or evidence of obstruction, uvula midline. Mucous membranes moist. Neck: Trachea midline, no thyromegaly or masses palpated, and no cervical lymphadenopathy. Supple, full range of motion without nuchal rigidity, or vertebral point tenderness. No Meningismus. Chest/axilla: Normal chest wall appearance and motion. Nontender with no deformity. No lesions are appreciated. Cardiovascular: Regular rate and rhythm with a normal S1 and S2. No gallops, murmurs, or rubs. Normal PMI, no JVD. No pulse deficits. Respiratory: Lungs have equal breath sounds bilaterally, clear to auscultation and percussion. No rales, rhonchi or wheezes noted. No increased work of breathing, no retractions or nasal flaring. Back: No spinal tenderness. No costovertebral tenderness. Full range of motion. Male : Normal genitalia with no discharge or lesions. Skin: Warm, dry with normal turgor. Normal color with no rashes, no lesions, and no evidence of cellulitis. MS/ Extremity: Pulses equal, no cyanosis. Neurovascular intact. Full, normal range of motion. Neuro: Awake and alert, GCS 15, oriented to person, place, time, and situation. Cranial nerves II-XII grossly intact. Motor strength 5/5 in all extremities. Sensory grossly intact. Cerebellar exam normal. Normal gait. Psych: Awake, alert, with orientation to person, place and time. Behavior, mood, and affect are within normal limits. 11:45 Abdomen/GI: Inspection: abdomen appears normal, Bowel sounds: hyperactive, Palpation: moderate abdominal tenderness, in the umbilical area and right lower quadrant. Vital Signs: 07:38 BP 148 / 101; Pulse 91; Resp 17; Temp 98.3; Pulse Ox 100% ; Weight 66.68 kg; Height 5 jl7 ft. 5 in. (165.10 cm); Pain 8/10; 10:10 BP 129 / 91; Pulse 63; Resp 16; ll1 11:30 BP 120 / 86; Pulse 67; Resp 16; Pulse Ox 100% on R/A; tp1 12:30 BP 123 / 80; Pulse 70; Resp 16; Pulse Ox 100% on R/A; tp1 13:23 BP 127 / 87; Pulse 62; Resp 16; Pulse Ox 100% on R/A; tp1 07:38 Body Mass Index 24.46 (66.68 kg, 165.10 cm) jl7 MDM: 07:35 Patient medically screened. [facility] 11:51 Data reviewed: vital signs, nurses notes, lab test result(s), radiologic studies, CT conrado scan. Data interpreted: ekg monitor: not applicable for this patient encounter. rate is 63 beats/min, rhythm is regular, Pulse oximetry: on room air is 100 %. Test interpretation: by ED physician or midlevel provider:. Counseling: I had a detailed discussion with the patient and/or guardian regarding: the historical points, exam findings, and any diagnostic results supporting the discharge/admit diagnosis, lab results, radiology results, the need to transfer to another facility, for higher level of care, [facility] does not immediately have the required specialist. 01/18 07:38 Order name: CBC with Diff; Complete Time: 10:35 conrado 01/18 07:38 Order name: CMP; Complete Time: 10:35 [facility] 01/18 07:38 Order name: Lipase; Complete Time: 10:35 [facility] 01/18 07:38 Order name: CT Abd/Pelvis - IV Contrast Only; Complete Time: 11:02 [facility] 01/18 12:59 Order name: SARS RAPID; Complete Time: 19:41 tp1 01/18 07:38 Order name: IV Saline Lock; Complete Time: 07:56 [facility] 01/18 07:38 Order name: Labs collected and sent; Complete Time: 07:56 [facility] 01/18 07:38 Order name: Urine Dipstick-Ancillary (obtain specimen); Complete Time: 10:51 [facility] 01/18 08:23 Order name: Labs - recollect needed: recollect green and lavender; Complete Time: 09:20 bd Administered Medications: 08:17 Drug: NS 0.9% 1000 ml Route: IV; Rate: 1 bolus; Site: right antecubital; ll1 10:31 Follow up: Response: No adverse reaction; IV Status: Completed infusion; IV Intake: ll1 1000ml 08:17 Drug: Pepcid (famotidine) 20 mg Route: IVP; Site: right antecubital; ll1 10:31 Follow up: Response: No adverse reaction 1 08:17 Drug: Zofran (Ondansetron) 4 mg Route: IVP; Site: right antecubital; ll1 10:31 Follow up: Response: No adverse reaction 1 08:17 Drug: morphine 4 mg {Note: rass 0, pain 6/10.} Route: IVP; Infused Over: 4 mins; Site: ll1 right antecubital; 10:31 Follow up: Response: No adverse reaction ll1 10:10 Drug: morphine 4 mg {Note: rass 0, pain 7/10.} Route: IVP; Infused Over: 4 mins; Site: ll1 right antecubital; 10:32 Follow up: Response: No adverse reaction; Pain is decreased; RASS: Alert and Calm (0) ll1 11:22 Drug: SOLU-Medrol (methylPrednisoLONE) 125 mg Route: IVP; Site: right antecubital; tp1 12:25 Follow up: Response: No adverse reaction tp1 11:24 Drug: NS 0.9% 1000 ml Route: IV; Rate: 125 ml/hr; Site: right antecubital; tp1 18:48 Follow up: IV Status: Infusion continued upon admission tp1 11:27 Drug: Flagyl (metroNIDAZOLE) 500 mg Volume: 100 ml; Route: IVPB; Rate: 200 ml/hr; tp1 Infused Over: 30 mins; Site: right antecubital; 12:00 Follow up: IV Status: Completed infusion; IV Intake: 100ml tp1 12:06 Drug: Cipro (ciprofloxacin) 400 mg Volume: 200 ml; Route: IVPB; Infused Over: 60 mins; tp1 Site: right antecubital; 13:00 Follow up: IV Status: Completed infusion; IV Intake: 200ml tp1 Disposition Summary: 01/18/22 12:28 Hospitalization Ordered Hospitalization Status: Inpatient Admission conrado Provider: Renetta Nava cha Condition: Fair(01/18/22 12:28) conrado Problem: new(01/18/22 12:28) conrado Symptoms: have improved(01/18/22 12:28) conrado Bed/Room Type: Standard conrado Location: Telemetry/MedSurg (Inpatient)(01/18/22 18:20) bd Room Assignment: 411(01/18/22 18:20) bd Diagnosis - Abdominal pain, Generalized(01/18/22 12:28) conrado - Crohn's disease of small intestine with intestinal obstruction - moderate to marked conrado dilation distal ileum(01/18/22 12:28) - Other and unspecified intestinal obstruction conrado Forms: - Medication Reconciliation Form conrado - SBAR form conrado Signatures: Dispatcher [employer] EDMS Linda Kellogg Corey, MD MD cha Leal, Jahala RN RN jl7 Bhupendra Ibarra RN RN ll1 Patricia Bernal RN RN tp1 Shawnee Hartman PA-C PAWesley sb4 Corrections: (The following items were deleted from the chart) 12: 11:[address] [place]a [place] conrado 12: 11:59 [facility] conrado conrado 12: 11:59 Higher level of care conrado conrado 12: 11:59 Fair conrado conrado 12: 11:59 new conrado conrado 12: 11:59 are unchanged conrado conrado 12: 11:59 Crohn's disease of small intestine with intestinal obstruction conrado conrado 12: 11:59 Abdominal pain, Generalized conrado conrado 12: 11:59 Other intestinal obstruction - marked dilation distal ileum conrado conrado 17:57 12:28 Telemetry/MedSurg (Inpatient) conrado jl7 17:57 12:28 conrado jl7 18:20 17:57 [facility] ER HOLD jl7 bd 18:20 17:57 ERHOLD- jl7 bd
[2022-01-18 14:14] LABS: SARS-CoV-2 Antigen Rapid Res Negative (Negative)
[2022-01-18] MEDS ORDERED: ACETAMINOPHEN 325 MG TABLET PO PRN (15:09)
[2022-01-18] MEDS ORDERED: LABETALOL 20 MG/4ML SYRINGE IV PRN (15:10)
[2022-01-18] MEDS ORDERED: ONDANSETRON 4 MG/2 ML VIAL IV PRN (15:12)
[2022-01-18 15:18] VITALS: BMI 24.4
--- NOTE | 2022-01-18 15:27 | P.HP ---
Certification for Inpatient Patient admitted to: Inpatient With expected LOS: >2 Midnights Patient will require the following post-hospital care: None Practitioner: I am a practitioner with admitting privileges, knowledge of patient current condition, hospital course, and medical plan of care. Services: Services provided to patient in accordance with Admission requirements found in Title 42 Section 412.3 of the Code of Federal Regulations Patient History Date of Service: 01/18/22 Reason for admission: Abdominal pain. History of Present Illness: Patient is a 31-year-old male with a past medical history significant for Crohn's disease who presents with complaint of abdominal pain located in the periumbilical area has been ongoing for the past 2 weeks. Patient rated pain as 8/10 in severity and described pain as sharp in quality. Patient reported that he is on weekly Humira injection for his Crohn's disease. Patient reported that he called his milieu coordinator last week and was placed on antibiotics and steroids. He was informed to go to the ER if he does not see any improvement in his symptoms. Patient reported associated signs and symptoms of nausea. Patient denies any other signs or symptoms. Symptoms are aggravated or relieved by nothing. Patient called his milieu coordinator 2 days ago to reports no improvement in symptoms and patient was instructed to go to the ER. Patient decided to present to the ER today as directed. Allergies No Known Allergies Allergy (Unverified 01/18/22 15:20) - Past Medical/Surgical History -: Crohn's disease Past Surgical History: Reviewed- Non-Contributory - Family History Father -: Cancer Mother -: Cancer - Social History Smoking Status: Unknown if ever smoked Alcohol use: No CD- Drugs: No Caffeine use: No Place of Residence: Home Review of Systems General: Unremarkable Eyes: Unremarkable ENT: Unremarkable Respiratory: Unremarkable Cardiovascular: Unremarkable Gastrointestinal: Nausea, Abdominal Pain Genitourinary: Unremarkable Musculoskeletal: Unremarkable Integumentary: Unremarkable Neurological: Unremarkable Lymphatics: Unremarkable Physical Examination - Physical Exam General: Alert, Oriented x3, Cooperative HEENT: Atraumatic, Normocephalic, PERRLA Neck: Supple, 2+ carotid pulse no bruit, JVD not distended Respiratory: Clear to auscultation bilaterally, Normal air movement Cardiovascular: No edema, Normal pulses, Regular rate/rhythm Capillary refill: <2 Seconds Gastrointestinal: Normal bowel sounds, Tenderness Musculoskeletal: No clubbing, No swelling, No contractures, No erythema Integumentary: No rashes, No breakdown Neurological: Normal gait, Normal strength at 5/5 x4 extr, Sensation intact, Normal affect Lymphatics: No axilla or inguinal lymphadenopathy - Studies Laboratory Data (last 24 hrs) 01/18/22 09:10: Sodium 136, Potassium 4.4, BUN 17, Creatinine 1.16, Glucose 101, Total Bilirubin 0.5, AST 21, ALT 30, Alkaline Phosphatase 74, Lipase 86 01/18/22 09:10: WBC 6.80, Hgb 14.9, Hct 44.9, Plt Count 215 Assessment and Plan - Plan -- Abdominal pain. CT abdomen indicates mild to moderate dilation distal ileum likely secondary to stricture And findings of mild thickening of the wall of the distal ileum and cecum likely indicating inflammation. Gastroenterology consulted. Patient placed on steroids and antibiotics.We will await further recommendation from milieu coordinator. --Acute on Crohn's disease exacerbation. Continue current treatment regimen. Continue IV hydration. Will reassess levels in a.m. --Acute pain. We will manage pain with current pain medication regimen. --CKD 2. Stable. Will reassess renal functions in a.m. --Nausea. Antiemetics on board. --DVT prophylaxis with Lovenox subQ. Discharge Plan: Home Plan to discharge in: Greater than 2 days - Advance Directives Does patient have a Living Will: No Does patient have a Durable POA for Healthcare: No - Code Status/Comfort Care Code Status Assessed: Yes Physician Review: Patient Assessed, Agree with Above Assessment and Plan Critical Care: No
[2022-01-18] MEDS: ENOXAPARIN 40 MG/0.4 ML SQ SCH (15:50)
[2022-01-18] MEDS ORDERED: METHYLPREDNISOLONE 40 MG INJ ONE (16:58)
[2022-01-18] MEDS: METHYLPREDNISOLONE 125 MG INJ IV SCH (17:00)
[2022-01-18] MEDS: METRONIDAZOLE 500mg IVPB 500 MG/100 ML BAG IV SCH (17:00)
[2022-01-18] MEDS: MORPHINE 4 MG/ML SYR IV PRN ×2 (17:23→22:23)
[2022-01-18] MEDS: NA CHLORIDE 0.9% 1,000 ML IV SCH ×2 (18:00→20:38)
[2022-01-18] MEDS: Ciprofloxacin 200mg IV 200 MG/100 ML IV.SOLN. IV SCH (20:42)
[2022-01-19] MEDS: METHYLPREDNISOLONE 125 MG INJ IV SCH ×3 (00:54→16:26)
[2022-01-19] MEDS: METRONIDAZOLE 500mg IVPB 500 MG/100 ML BAG IV SCH ×3 (00:54→16:25)
[2022-01-19] MEDS: MORPHINE 4 MG/ML SYR IV PRN ×4 (03:26→20:14)
[2022-01-19 03:32] VITALS: O2SAT 99
[2022-01-19 04:06] LABS: Absolute Lymphocytes (CBC) 0.7 K/uL (0.7-4.9); Lymphocytes % 9.3 % (15.3-44.8); MCV 87.4 fL (80-100); MPV 9.4 fL (7.6-11.3); RBC Red Blood Cell Count 5.04 M/uL (4.33-5.43)
[2022-01-19 04:15] LABS: Potassium 4.3 mmol/L (3.5-5.1)
[2022-01-19 08:09] LABS: Urine Bilirubin NEGATIVE (Negative); Urine Blood Negative (Negative); Urine Clarity Clear (Clear); Urine Color Light-Yellow (Yellow); Urine Glucose NEGATIVE (Negative); Urine Protein NEGATIVE (Negative); Urine Urobilinogen Normal (Normal)
[2022-01-19] MEDS: ENOXAPARIN 40 MG/0.4 ML SQ SCH ×2 (09:00→10:01)
[2022-01-19] MEDS: Ciprofloxacin 200mg IV 200 MG/100 ML IV.SOLN. IV SCH (09:59)
--- NOTE | 2022-01-19 12:04 | P.PN ---
Subjective Date of Service: 01/19/22 Pt is feeling better. He is having flatus. He has not had a bowel movement. Spoke to GI yesterday and patient is getting IV steroids per their recommendation. Patient sees Dr. Sumner in the office. We will repeat CT scan in 48 hours. Continue with IV steroids. Review of Systems 10-point ROS is otherwise unremarkable Physical Examination - Vital Signs Temperature: 97.7 F Blood Pressure: 126/77 Pulse: 68 Respirations: 12 Pulse Ox (%): 100 - Physical Exam General: Alert, In no apparent distress, Oriented x3 HEENT: Atraumatic, PERRLA, EOMI Neck: Supple, JVD not distended Respiratory: Clear to auscultation bilaterally, Normal air movement Cardiovascular: Regular rate/rhythm, Normal S1 S2 Gastrointestinal: Normal bowel sounds, No tenderness Musculoskeletal: No tenderness Integumentary: No rashes Neurological: Normal speech, Normal tone, Normal affect Lymphatics: No axilla or inguinal lymphadenopathy - Studies Medications List Reviewed: Yes Assessment & Plan - Problems (Diagnosis) (1) Exacerbation of Crohn's disease Current Visit: Yes Status: Acute (2) Crohn's ileitis Current Visit: Yes Status: Acute - Plan -IV antibiotics -IV fluids -GI consultation -It with intravenous steroids -Clear liquid diet -Repeat imaging studies -Antiemetics Discharge Plan: Home Plan to discharge in: Greater than 2 days - Advance Directives Does patient have a Living Will: No Does patient have a Durable POA for Healthcare: No - Code Status/Comfort Care Code Status Assessed: Yes Code Status: Full Code Physician Review: Patient Assessed, Agree with Above Assessment and Plan Critical Care: No Time Spent Managing PTS Care (In Minutes): 35
[2022-01-19] MEDS: NA CHLORIDE 0.9% 1,000 ML IV SCH (14:49)
--- NOTE | 2022-01-19 17:53 | P.PN ---
Subjective Date of Service: 01/19/22 Chief Complaint: Periumbilical / RLQ abdominal pain. Crohn's flare. TI inflamed with pSBO. Subjective: Improving (His periumbilical / RLQ has improved by ~ 20%. +Flatus. No stools yet. Tolerating CLs well. Reports very minimal nausea but no V/F/C.) Physical Examination - Vital Signs Temperature: 98.1 F Blood Pressure: 138/77 Pulse: 74 Respirations: 14 Pulse Ox (%): 99 - Studies Medications List Reviewed: Yes Assessment And Plan - Current Problems (Diagnosis) (1) RLQ abdominal pain Current Visit: Yes Status: Acute (2) Periumbilical abdominal pain Current Visit: Yes Status: Acute (3) Nausea Current Visit: Yes Status: Acute (4) Crohn's ileitis Current Visit: Yes Status: Acute (5) Exacerbation of Crohn's disease Current Visit: Yes Status: Acute - Plan REC: 1) continue IV Solumedrol and IVFs 2) continue prn pain meds 3) await repeat abdominal imaging tomorrow 4) continue CLs with slow advancement to FL diet (after reviewing abdominal imaging) and then to low residue 5) will check Humira trough and antibody levels & change to Remicade with immunomodulator 6) will check ESR, CRP if not done and outpatient Monitr test 7) will not do pillcam (CT positive) 8) upon discharge will need Prednisone 20 mg po bid for 2+ weeks with taper Physician Review: Patient Assessed, Agree with Above Assessment and Plan
[2022-01-19] MEDS: CIPROFLOXACIN 400mg IV 400 MG/200 ML BAG IV SCH (20:15)
[2022-01-20] MEDS: METRONIDAZOLE 500mg IVPB 500 MG/100 ML BAG IV SCH ×3 (00:50→17:03)
[2022-01-20] MEDS: NA CHLORIDE 0.9% 1,000 ML IV SCH ×2 (00:51→16:56)
[2022-01-20] MEDS: METHYLPREDNISOLONE 125 MG INJ IV SCH ×3 (00:51→17:03)
[2022-01-20 05:59] LABS: Absolute Lymphocytes (CBC) 0.6 K/uL (0.7-4.9); Hematocrit 42.7 % (39.6-49.0); Lymphocytes % 5.6 % (15.3-44.8); MCV 87.8 fL (80-100); MPV 8.9 fL (7.6-11.3); RBC Red Blood Cell Count 4.86 M/uL (4.33-5.43)
[2022-01-20 06:32] LABS: Potassium 4.1 mmol/L (3.5-5.1)
[2022-01-20] MEDS: ENOXAPARIN 40 MG/0.4 ML SQ SCH (09:00)
[2022-01-20] MEDS: CIPROFLOXACIN 400mg IV 400 MG/200 ML BAG IV SCH ×2 (10:45→20:28)
--- NOTE | 2022-01-20 15:03 | RAD REPORT ---
EXAM DESCRIPTION: CTAbdomen Pelvis Wo Contrast - 01/20/2022 2:52 pm CLINICAL HISTORY: follow-up COMPARISON: Abdomen Pelvis W Contrast dated 01/18/2022; Abdomen Pelvis W/Wo Contrast dated 022 TECHNIQUE: CT of the abdomen and pelvis was performed. All CT scans are performed using dose optimization technique as appropriate and may include automated exposure control or mA/KV adjustment according to patient size. FINDINGS: Lower chest: No acute abnormality. Liver: No acute abnormality or suspicious lesions. Biliary: No biliary ductal dilatation. Stomach: No significant focal abnormality. Duodenum: No significant focal abnormality. Pancreas: No significant abnormality. Spleen: No significant abnormality. Adrenal: No suspicious lesions. Kidney/ureter: No hydronephrosis. No renal calculi. Retroperitoneum: No retroperitoneal adenopathy. Vascular: No aneurysm. Bowel: Thickened terminal ileum with a large upstream fecalized stool burden. Contrast does not trave rse the site of suspected stricture. Peritoneum: No ascites or free air. Bladder: Grossly unremarkable. Reproductive: No adnexal masses. Bones: No acute fracture. Other: n/a IMPRESSION: No significant change compared with 01/18/2022. Large volume of stool at the terminal il eum with likely stricture. The enteric contrast does not traverse this segment of small bowel. Nevert heless, it is likely a partial obstruction.
--- NOTE | 2022-01-20 18:12 | P.PN ---
Subjective Date of Service: 01/20/22 Chief Complaint: Periumbilical / RLQ abdominal pain. Crohn's flare. TI inflamed with pSBO. No acute events overnight. He reports that he is feeling better. He reports having flatus and having three small bowel movements. Spoke with Dr. Sumner, who recommended repeating CT abdomen/pelvis. Can possibly discharge later today if repeat CT reveals resolution of his bowel obstruction. Review of Systems 10-point ROS is otherwise unremarkable Gastrointestinal: Abdominal Pain (mild) Physical Examination - Vital Signs Temperature: 97.5 F Blood Pressure: 130/67 Pulse: 74 Respirations: 18 Pulse Ox (%): 97 - Physical Exam General: Alert, In no apparent distress, Oriented x3 HEENT: Atraumatic, PERRLA, Mucous membr. moist/pink, EOMI, Sclerae nonicteric Neck: JVD not distended Respiratory: Clear to auscultation bilaterally, Normal air movement Cardiovascular: No edema, Regular rate/rhythm, Normal S1 S2, No gallops, No rubs, No murmurs Gastrointestinal: Normal bowel sounds, Soft and benign, Non-distended, No tenderness, No rebound, No guarding Musculoskeletal: No clubbing Integumentary: No rashes Neurological: Normal speech, Cranial nerves 3-12 intact, Normal affect - Studies Medications List Reviewed: Yes Assessment And Plan - Plan # Acute Crohn's Exacerbation with Ileitis # Partial Small Bowel Obstruction secondary to Stricture - Evaluation: - CT abdomen/pelvis = "moderate to marked dilatation distal ileum. Given the history of Crohn's disease this may be secondary to a stricture. Mild thickening of the wall of the distal ileum and cecum likely indicating inflammation" - Management plan: - Gastroenterology consulted and spoke with Dr. Sumner - recommendations appreciated - Recommended repeat CT abdomen/pelvis - At discharge, recommends: - 10 days of ciprofloxacin + metronidazole - 21 days of prednisone 20 mg PO BID - Continue ciprofloxacin, metronidazole, methylprednisolone - Advance diet as tolerated - Symptom control - Lactated Ringers' @ 100 mL/hr Jhonny Lennon M.D.
[2022-01-20] MEDS: Ringers Lactate 1,000 ML IV SCH (20:28)
[2022-01-21] MEDS: METHYLPREDNISOLONE 125 MG INJ IV SCH ×2 (00:21→08:08)
[2022-01-21] MEDS: METRONIDAZOLE 500mg IVPB 500 MG/100 ML BAG IV SCH ×2 (00:21→08:07)
[2022-01-21 08:01] VITALS: BP 118/71; TEMP 97.6
[2022-01-21] MEDS: CIPROFLOXACIN 400mg IV 400 MG/200 ML BAG IV SCH (08:07)
[2022-01-21] MEDS: ENOXAPARIN 40 MG/0.4 ML SQ SCH (08:08)
[2022-01-21] MEDS: Ringers Lactate 1,000 ML IV SCH (08:10)
[2022-01-21 08:32] LABS: Urine Blood Negative (Negative); Urine Glucose Negative (Negative); Urine Protein Negative (Negative); Urine pH 6.5 (5.0-7.0)
--- NOTE | 2022-01-21 08:38 | RAD REPORT ---
EXAM DESCRIPTION: RAD - Abdomen 1 View (KUB) - 01/21/2022 6:43 am CLINICAL HISTORY: Abdomen pain FINDINGS: A loop of the distal ileum remains dilated above the level of the iliac crest. It is equiv ocally mildly decreased in caliber since the prior CT scan. Remainder of the bowel gas pattern unremarkable. There is contrast within portions of the colon
--- NOTE | 2022-01-21 08:54 | P.DS ---
Admission Date: 01/18/22 Discharge Date: 01/21/22 Disposition: ROUTINE DISCHARGE Discharge Condition: GOOD Reason for Admission: Periumbilical / RLQ abdominal pain. Crohn's flare. TI inflamed with pSBO. Consultations: 1. Gastroenterology Hospital Course: DIAGNOSES: # Acute Crohn's Exacerbation with Ileitis # Partial Small Bowel Obstruction secondary to Stricture HOSPITAL COURSE: Mr. Jose Martin Fritz is a pleasant 31-year-old male with a past medical history significant for Crohn's disease who was admitted to the [facility] on 01/18/2022 for abdominal pain, nausea, and vomiting. He was admitted to the Medicine service. Upon further evaluation, his CT abdomen/pelvis revealed, "moderate to marked dilatation distal ileum. Given the history of Crohn's disease this may be secondary to a stricture. Mild thickening of the wall of the distal ileum and cecum likely indicating inflammation." Gastroenterology was consulted and he was evaluated by Dr. Sumner. He was placed NPO, started on ciprofloxacin, metronidazole, prednisone, and IV fluids. A repeat CT abdomen/pelvis revealed, "no significant change compared with 01/18/2022. Large volume of stool at the terminal ileum with likely stricture. The enteric contrast does not traverse this segment of small bowel. Nevertheless, it is likely a partial obstruction." A KUB was performed earlier today, which revealed, "A loop of the distal ileum remains dilated above the level of the iliac crest. It is equivocally mildly decreased in caliber since the prior CT scan. Remainder of the bowel gas pattern unremarkable. There is contrast within portions of the colon." Over the course of his hospitalization, his symptoms improved significantly and he was able to tolerate a full liquid diet. He was no longer experiencing any abdominal pain, nausea, or vomiting. He was able to pass flatus and had several bowel movements prior to discharge. Since his KUB this morning revealed contrast in the colon, Dr. Sumner had cleared him for discharge home. He will follow as an outpatient to discuss the possibility of starting infliximab. On 01/21/2022, he was seen on morning rounds and deemed medically stable for discharge. He was discharged with instructions to schedule follow-up appointments with his PCP and his News Content Specialist (Dr. Sumner). He was provided prescriptions for ciprofloxacin, metronidazole, and prednisone. He was given the opportunity to ask questions and reported no further questions. Furthermore, all questions were answered to the best of my ability. A copy of this discharge summary will be sent to the above providers to facilitate continuity of care. Today, I personally spent 25 minutes on his case, of which greater than 50% of the time was spent in patient education, counseling, and coordination of care as described above. - Physical Exam General: Alert, In no apparent distress, Oriented x3 HEENT: Atraumatic, PERRLA, Mucous membr. moist/pink, EOMI, Sclerae nonicteric Neck: JVD not distended Respiratory: Clear to auscultation bilaterally, Normal air movement Cardiovascular: No edema, Regular rate/rhythm, Normal S1 S2, No gallops, No rubs, No murmurs Gastrointestinal: Normal bowel sounds, Soft and benign, Non-distended, No tenderness, No rebound, No guarding Musculoskeletal: No clubbing Integumentary: No rashes Neurological: Normal speech, Cranial nerves 3-12 intact, Normal affect Vital Signs/Physical Exam: Temp Pulse Resp BP Pulse Ox 97.6 F 64 16 118/71 100 01/21/22 08:00 01/21/22 08:00 01/21/22 08:00 01/21/22 08:00 01/21/22 08:00 Laboratory Data at Discharge: WBC 11.40 K/uL (4.3-10.9) H 01/20/22 05:27 Hgb 14.1 g/dL (13.6-17.9) 01/20/22 05:27 Hct 42.7 % (39.6-49.0) 01/20/22 05:27 Plt Count 226 K/uL (152-406) 01/20/22 05:27 Sodium 137 mmol/L (136-145) 01/20/22 05:27 Potassium 4.1 mmol/L (3.5-5.1) 01/20/22 05:27 BUN 16 mg/dL (7-18) 01/20/22 05:27 Creatinine 0.96 mg/dL (0.55-1.3) 01/20/22 05:27 Glucose 144 mg/dL (74-106) H 01/20/22 05:27 Magnesium 2.0 mg/dL (1.8-2.4) 01/20/22 05:27 Total Bilirubin 0.5 mg/dL (0.2-1.0) 01/18/22 09:10 AST 21 U/L (15-37) 01/18/22 09:10 ALT 30 U/L (12-78) 01/18/22 09:10 Alkaline Phosphatase 74 U/L (45-117) 01/18/22 09:10 Lipase 86 U/L (73-393) 01/18/22 09:10 Home Medications: RX: Ciprofloxacin HCl [Cipro] 500 mg PO BID 10 Days #20 tab 01/21/22 RX: metroNIDAZOLE [Flagyl*] 500 mg PO TID 10 Days #30 tab 01/21/22 predniSONE [Deltasone] 20 mg PO BID 21 Days #42 tab 01/21/22 New Medications: RX: Ciprofloxacin HCl [Cipro] 500 mg PO BID 10 Days #20 tab RX: metroNIDAZOLE [Flagyl*] 500 mg PO TID 10 Days #30 tab predniSONE [Deltasone] 20 mg PO BID 21 Days #42 tab Physician Discharge Instructions: 1. Please call and schedule a follow-up appointment with your PCP in 3-5 days 2. Please call and schedule a follow-up appointment with your News Content Specialist (Dr. Sumner) in 5-7 days Diet: [place] Activity: Ad vero Followup: Uziel Sumner MD [ASSOCIATE-ACTIVE - CAN ADMIT] - 1 Week Time spent managing pt's care (in minutes): 25
--- NOTE | 2022-01-23 23:03 | CON ---
Date of Consultation: 01/18/2022 Reason For Consultation: Marked right lower quadrant pain with Crohn's flare and partial small-bowel obstruction with abnormal CT scan. History Of Present Illness: Patient is a 31-year-old white male with history of Crohn disease for ma ny years. Patient has been on Humira it appears since July 2020. Patient has been stable on his medi cations since that time. However, he reports eating potatoes and he thinks that there might be some skin that was left on the potatoes recently and prior to the onset of his pain, he started to having 8/10 periumbilical pain over the past 2 weeks that became increasing severity and sharp. Patient cam e to the hospital for further evaluation and care. He has been started on budesonide and increased h is Humira recently to every week instead of every other week dosing due to some recent problems with some pain. He also started on antibiotics as an outpatient as well. The patient continued to have i ncreasing pain despite these measures of increase in the Humira from every other week to every week t o budesonide p.o. and also p.o. antibiotics and came to hospital for further evaluation and care. CT of abdomen and pelvis revealed inflamed terminal ileum with partial small-bowel obstruction at that area. Patient does report mild constipation recently, but he denies any nausea, vomiting, fevers, ch ills, night sweats. Patient states the pain is around the periumbilical area. Past Medical History: Significant for Crohn disease and heartburn. Allergies: NKDA. Medication: Includes Humira. Social History: He is , 2 children, ages 7 and 6. No tobacco. No alcohol. 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 Family History: Father of a glioblastoma in 2018. Mother is alive, had history of breast cance r in 2009 with chemotherapy and radiation therapy and also has cardiovascular disease with coronary s tent. His sister has multiple sclerosis. Review of Systems: Patient has periumbilical pain, but no nausea, vomiting, fevers, chills, muscle aches, joint aches, b ackaches, change in bowel habits, diarrhea, constipation. He does state he has some mild constipatio n, but no lower extremity edema, muscle aches, joint aches, backaches, hematemesis, coffee-grounds em esis, hemoptysis, epistaxis, hematuria, dysuria, polydipsia. No chest pain, short of breath, seizure , syncope. No depression anxiety. Physical Examination: Vital Signs: Patient is 5 feet 5 inches, 147 pounds. BMI is 24.5 kg/m2. Temperature in the morning 98.3 with pulse 70, respirations 16, blood pressure 120/80, O2 saturation 100%. HEENT: He is a well-nourished, well-developed male, lying in bed, in mild distress with his periumbi lical pain. HEENT: Normocephalic, atraumatic. Anicteric. Pupils equal, round, and reactive to light. Extraocu lar movements clear. Neck: Supple. No masses. Respirations: Clear to auscultation bilaterally. Cardiac: Regular rate and rhythm. Gastrointestinal: Positive bowel sounds. Hypoactive. Soft, nondistended. Pain at the periumbilica l area, but also at right lower quadrant area, actually right lower quadrant was greater than the per iumbilical pain. Mild guarding. No rebound. No hepatosplenomegaly. Extremities: No clubbing, no edema, 2+ pulses throughout. Neuro: Alert and oriented x3. Grossly nonfocal. 5/5 motor sensation intact to light touch. Laboratory Data: Patient has a white count of 6.8, hemoglobin of 14.9, hematocrit 45, MCV of 87, arnoldo telet count of 215, polys of 70%, lymphocytes 18%, monocytes 11%, eosinophils 1%. Patient has a sodi um of 136, potassium 4.4, chloride 104, bicarb 29, BUN 17, creatinine of 1.2, glucose 101, calcium of 8.7. Total bilirubin 0.5, AST of 21, ALT of 30, alkaline phosphatase 74, total protein 6.8. Lipase 86. UA was negative. COVID-[address] abdomen and pelvis did reveal moderate to marked dilatation of distal ileum given history of Crohn disease secondary to stricture. Mild thicke arnulfo of the wall of the distal ileum and cecum likely indicating inflammation and small amount of asc ites. Jejunum was normal. Dilatation of distal ileum was 5.4 cm, which contain stool wall is mildly thickened and the wall of cecum was mildly thickened, otherwise negative. Impression: 1.Crohn disease flare with inflamed terminal ileum and partial small-bowel obstruction. Patient has been on Humira since July 2020. Patient has increasing symptoms recently as an outpatient with incre asing episodes of some pain. Cipro, Flagyl were added. Budesonide steroid was added and Humira was increased from every other week to q. week. Despite these efforts, he has advanced and now has a par tial small bowel obstruction with inflamed terminal ileum, cecum noted on CT scan. He denies any [place], vomiting, fevers, chills, night sweats. He has had a bowel movement the day before, some flatus , but none today. Once again, he denies any nausea, vomiting, fevers, chills, night sweats. He does have some history of recent mild constipation. He also has a history of some occasional potatoes wi th skins and small pieces of skin he states that he did take off. 2.Has a history of Crohn disease and heartburn. Recommendations: 1.Continue IV fluids, IV antibiotics, Cipro, Flagyl. 2.IV steroids were started in the emergency room. 3.We will check Humira trough drug level and also check Humira antibody levels. Once again, he has been on Humira since July 2020. Patient may need to be switched to another biologic agent and/or add a possible immunomodulators. 4.Continue p.r.n. pain medicines. PENELOPE/REINIER Voice ID: [id number] Report ID: [id number]
== END 2022-01-21 09:55 | disposition home or self-care (01) | DRG 387 ==
LOC: ER 07:07 → ERHOLD 15:07 → 4TH 19:53
PROVIDERS: ADMIT Hospitalist; ATTEND Internal Medicine
DX: K50.012 Crohn's disease of small intestine with intestinal obstruction (principal); N18.2 Chronic kidney disease, stage 2 (mild); R14.3 Flatulence; Z79.52 Long term (current) use of systemic steroids; Z79.899 Other long term (current) drug therapy; Z20.822 Contact with and (suspected) exposure to COVID-19
CPT/HCPCS: 36415; 74018; 74176; 74177; 80048; 80053; 81003; 83690; 83735; 85025; 85652; 86140; 87811; 96361; 96365; 96367; 96375; 99285; J0744; J1650; J2405; J2920; J2930; J7030; J7120; Q9967

== ENCOUNTER 2022-03-31 08:12 | Day surgery (SDC) | payer BC ==
[2022-03-31] MEDS ORDERED: DIPHENHYDRAMINE 25 MG TAB/CAP ONE (08:21)
[2022-03-31] MEDS ORDERED: ACETAMINOPHEN 325 MG TABLET ONE (08:21)
[2022-03-31] MEDS ORDERED: NA CHLORIDE 0.9% 250 ML ONE (08:44)
[2022-03-31 09:00] VITALS: O2SAT 100; BMI 25.7
[2022-03-31] MEDS ORDERED: INFLIXIMAB-ABDA 400 MG in NA CHLORIDE 0.9% 250 ML IV ONE (09:00)
[2022-03-31 13:16] VITALS: BP 115/72; TEMP 98.3
== END 2022-03-31 11:15 | disposition home or self-care (01) ==
LOC: DS 08:12
PROVIDERS: ATTEND Internal Medicine Gastroenterology
DX: K50.10 Crohn's disease of large intestine without complications (principal)
CPT/HCPCS: 96365; 96366; Q5104; J7050 ×2

== ENCOUNTER 2022-05-01 07:54 | Day surgery (SDC) | payer BC ==
[2022-05-01] MEDS ORDERED: DIPHENHYDRAMINE 25 MG TAB/CAP ONE (08:20)
[2022-05-01] MEDS ORDERED: ACETAMINOPHEN 500 MG TAB ONE (08:20)
[2022-05-01] MEDS ORDERED: NA CHLORIDE 0.9% 250 ML ONE (08:27)
[2022-05-01 08:59] VITALS: BMI 26.6
[2022-05-01] MEDS ORDERED: INFLIXIMAB-ABDA 400 MG in NA CHLORIDE 0.9% 250 ML IV ONE (09:00)
[2022-05-01 09:50] VITALS: O2SAT 100
[2022-05-01 10:56] VITALS: BP 117/81; TEMP 97.4
== END 2022-05-01 11:09 | disposition home or self-care (01) ==
LOC: DS 07:54
PROVIDERS: ATTEND Internal Medicine Gastroenterology
DX: K50.10 Crohn's disease of large intestine without complications (principal)
CPT/HCPCS: 96365; 96366; Q5104; J7050 ×2

== ENCOUNTER 2022-09-06 08:38 | Day surgery (SDC) | payer BC ==
[2022-09-06] MEDS ORDERED: DIPHENHYDRAMINE 25 MG TAB/CAP ONE (08:58)
[2022-09-06] MEDS ORDERED: ACETAMINOPHEN 325 MG TABLET ONE (08:58)
[2022-09-06] MEDS ORDERED: INFLIXIMAB-ABDA 400 MG in NA CHLORIDE 0.9% 250 ML IV ONE (09:00)
[2022-09-06] MEDS ORDERED: NA CHLORIDE 0.9% 250 ML ONE (09:18)
[2022-09-06 09:28] VITALS: BMI 26.6
[2022-09-06 09:29] VITALS: O2SAT 100
[2022-09-06 11:50] VITALS: BP 111/60; TEMP 97.5
== END 2022-09-06 11:31 | disposition home or self-care (01) ==
LOC: DS 08:38
PROVIDERS: ATTEND Internal Medicine Gastroenterology
DX: K50.10 Crohn's disease of large intestine without complications (principal)
CPT/HCPCS: 96365; 96366; Q5104; J7050 ×2

== ENCOUNTER 2022-10-24 13:28 | Emergency (ER) | payer BC ==
--- OUTSIDE RECORDS SUMMARY | 2022-10-24 13:32 | XMS REPORT | Continuity of Care Document ---
:[address] [facility] t Address [address] [place] [address] [place] [id number] Care Team Providers Name Role Phone NIRAJ FARAH Attending Clinician Unavailable 2, Adc Lab Attending Clinician Unavailable Niraj Farah MD Attending Clinician Doctor Unassigned, [place] Attending Clinician Unavailable CHEMA Attending Clinician Unavailable Volodymyr Stacy DO Attending Clinician Uzair Blood MD Attending Clinician Sarahi Sumner Attending Clinician [phone] Lab, Adc Fam Pob I Attending Clinician Unavailable Caryl Juares Attending Clinician CHEMA Admitting Clinician Unavailable Uzair Blood MD Admitting Clinician Payers Payer Name Policy Type Policy Number Effective Date Expiration Date Rachel perez ADALI TUCKER AETNA [id number] 2011 00:00:00 [facility] [id number] 2018 00:00:00 [facility] [id number] 2018 00:00:00 Problems Condition Condition Condition Status Onset Resolution Last Treating Co mments Source Name Details Category Date Date Treatment Clinician Date Gastroesop Gastroesop Problem Active S weeny hageal hageal 5-11 Communi reflux Reflux 00:00: [facility] Chronic Problem Active [place] cough Cough 5-11 [facility]00[facility] Abdominal Abdominal Disease Active Uni vers pain pain 05-26 ity of 00:00: [address] Branch No known No known Disease Unive rs active active ity of problems problems [facility] Allergies, Adverse Reactions, Alerts Allergy Allergy Status Severity Reaction(s) Onset Inactive Treating Comm ents Source Name Type Date Date Clinician NO KNOWN Drug Active Univers ALLERGIE Class ity of S [facility] Social History Social Habit Start Date Stop Date Quantity Comments Source Exposure to Not sure [facility] SARS-CoV-2 [facility] [place] (event) [facility] Tobacco use and 2020-05-26 2020-05-26 Never used Universit y of exposure 00:00:00 00:00:00 [facility] Alcohol intake 2020-05-26 2020-05-26 Current [facility] 00:00:00 00:00:00 non-drinker of [facility] alcohol [place] (finding) Sex Ass[birth year] At [birth year] Universit y of 00:00:00 00:00:00 [facility] Smoking Status Start Date Stop Date Source Never smoker [facility] Medications Ordered Filled Start Stop Current Ordering Indication Dosage Frequency Signature Comments Components Source Medication Medication Date Date Medication? Clinician (SIG) Name Name barium 2020- No [id number] 680g 680 g, Uni vers sulfate 06-02 Oral, ity of (LIQUID E-Z 14:00: 13:39 ONCE, 1 [facility] ANGELITO) 60 % 00 :00 dose, Wed Med ical (w/v) oral 06/02/20 at [facility] suspension 0900, 680 g Routine FLUTICASONE Yes 1{tbl} Use 1 Uni vers PROPIONATE 3-25 tablet in ity of (FLONASE 22:47: each [place] ALLERGY nostril 2 Medical RELIEF (two) Branch NASAL) times daily. loratadine Yes 10mg Take 10 mg U nivers (CLARITIN) 3-25 by mouth ity o f 10 mg 22:47: daily. [place] tablet Medical Branch dexlansopra Yes Take by Uni vers zole 3-25 mouth ity of (DEXILANT 22:47: daily. [place] ORAL) 46 Medical Branch FLUTICASONE Yes 1{tbl} [...] 3-25 mouth ity of (DEXILANT 22:47: daily. [place] ORAL) 46 Medical Branch FLUTICASONE Yes 1{tbl} Use 1 Uni vers PROPIONATE 3-25 tablet in ity of (FLONASE 22:47: each [place] ALLERGY nostril 2 Medical RELIEF (two) Branch NASAL) times daily. loratadine Yes 10mg Take 10 mg U nivers (CLARITIN) -25 by mouth ity o f 10 mg 22:47: daily. [place] tablet 46 Medical Branch dexlansopra Yes Take by Uni vers zole 3-25 mouth ity of (DEXILANT 22:47: daily. [place] ORAL) 46 Medical Branch silver 2020- No [...] ity of 1,000 mg in 16:45: Piggyback, [place] NaCl 0.9% 00 Q24H ABX, Medic al [...] 0900, Until Discontinu ed, Routine acidophilus Yes [id number] 1g Take 1 Univers 100 million 3-25 tablet by ity of cell tablet 00:00: mouth 2 [place] 00 (two) Medical times Branch daily. acidophilus Yes [id number] 1g Take 1 Univers 100 million 3-25 tablet by ity of cell tablet 00:00: mouth 2 [place] 00 (two) Medical times Branch daily. acidophilus Yes [id number] 1g Take 1 Univers 100 million 3-25 tablet by ity of cell tablet 00:00: mouth 2 [place] 00 (two) Medical times Branch daily. acidophilus Yes [id number] 1g Take 1 Univers 100 million 3-25 tablet by ity of cell tablet 00:00: mouth 2 [place] 00 (two) Medical times Branch daily. acidophilus Yes [id number] 1g Take 1 Univers 100 million 3-25 tablet by ity of cell tablet 00:00: mouth 2 [place] 00 (two) Medical times Branch daily. acidophilus Yes [id number] 1g Take 1 Univers 100 million 3-25 tablet by ity of cell tablet 00:00: mouth 2 [place] 00 (two) Medical times Branch daily. levoFLOXaci 2020-0 2020- No [id number] 500mg Take 1 Univers n 500 mg 3-25 04-05 tablet by ity o f tablet 00:00: 04:59 mouth [place] 00 :00 every 24 Medical (twenty-fo Branch ur) hours for 10 days. metroNIDAZO 2020-0 2020- No [id number] 500mg Take 1 Univers LE 500 mg 3-25 04-05 tablet by ity of tablet 00:00: 04:59 mouth 2 [place] 00 :00 (two) Medical times Branch daily for 10 days. levoFLOXaci 2020- No [id number] 500mg Take 1 Univers n 500 mg -27 06-05 tablet by ity o f tablet 00:00: 04:59 mouth [place] 00 :00 every 24 Medical (twenty- Branch ur) hours for 10 days. metroNIDAZO 2020- No [id number] 500mg Take 1 Univers LE 500 mg 05-27-05 tablet by ity of tablet 00:00: 04:59 mouth 2 [place] 00 :00 (two) Medical times Branch daily for 10 days. levoFLOXaci 2020- No [id number] 500mg Take 1 Univers n 500 mg 3-25 -05 tablet by ity o f tablet 00:00: 04:59 mouth [place] 00 :00 every 24 Medical ([facility] Branch ur) hours for 10 days. metroNIDAZO 2020- No [id number] 500mg Take 1 Univers LE 500 mg 3-27 06-05 tablet by ity of tablet 00:00: 04:59 mouth 2 [place] 00 :00 (two) Medical times Branch daily for 10 days. piperacilli 2020- No 3.375g 3.375 g, Univers n-tazobacta 05-26 IV ity of m (ZOSYN) 22:15: 15:33 [...] dose Medica l I.V.) RTU on Sun Branch IV infusion 05/26/20 at 500 mg 1130, [...] ity of mg 15:45: 14:50 ONCE, 1 [place] 00 :00 dose, Sun Medical 05/26/20 at [...] IV Push, ity of (PF)) 15:06: Q6HPRN, [place] injection 4 46 Starting Medi ori mg Wed [facility] 05/26/20 at 1006, Until Discontinu ed, Routine, Nausea and Vomiting (N/V) acetaminoph Yes 650mg 650 mg, Un walt en 05-26 Oral, ity of (TYLENOL) 15:06: Q6HPRN, [place] tablet 650 31 Starting Medic al mg [facility] 05/26/20 at 1006, Until Discontinu ed, Routine, Pain (scale 1-3) dicyclomine Yes 10mg 10 mg, Univ ers (BENTYL) 05-26 Oral, QID, ity o f capsule 10 13:00: First dose [place] mg 00 on [facility] Medical 05/26/20 at Branch 0800, Until Discontinu ed, Routine piperacilli 2020- No 3.375g 3.375 g, Univers n-tazobacta 05-26 IV ity of m (ZOSYN) 12:45: 12:29 Piggyback, [place] 3.375 g in 00 :00 ONCE, 1 Medica l NaCl 0.9% dose, [facility] Branc h (NS) 100 mL 05/26/20 at MINI-BAG 0745, 100 mL
Reas on for Anti-Infec tive: Empiric Therapy for Suspected Infection< br>Empiric Therapy Site: Abdominal< br>Duratio n of therapy: 72 hours ondansetron 2020- No 4mg 4 mg, Slow Univers (ZOFRAN 05-26 IV Push, ity of (PF)) 12:15: 11:01 ONCE, 1 [place] injection 4 00 :00 dose, Wed Med ical mg 05/26/20 at Branch 0715, ERICA iohexol 2020- No [id number] 120mL 120 mL, Univers (OMNIPAQUE 05-26 Intravenou it y of 350 11:30: 11:30 s, ONCE, 1 [place] BULK-150 00 :00 dose, Wed Medica l mL) 05/26/20 at [facility] injection 0630, 120 mL Routine NaCl 0.9% 2020- No 1000mL at 999 Uni vers (NS) bolus 3-24 03-24 mL/hr, ity of infusion 11:00: 13:00 1,000 mL, [place] as 1,000 mL 00 :00 IV Medical Infusion, Branch ONCE, 1 dose, 05/26/20 at 0600, STAT morpHINE 2020-0 2020- No 4mg 4 mg, Slow Un walt injection 4 05-2624 IV Push, ity of mg 10:53: 15:07 Q4HPRN, [place] 24 :02 Starting Medical Wed Branch 05/26/20 at 0553, Until Sun05/26/20 at 1007, Routine, Pain (scale 7-10) FLUTICASONE Yes 1{tbl} Use 1 Uni vers [...] [place] 13 once now. Medical Branch gabapentin 20170 Yes 300mg Take 1 Univ ers 300 mg 3-02 capsule by ity of capsule 00:00: mouth [place] 00 every 8 Medical (eight) Branch hours as needed for Pain (scale 1-3). For pain scale 1-3 naproxen 2017- Yes 500mg Take 1 Univer s 500 [...] as needed for Pain (scale 7-10). gabapentin 2016-2020- No 300mg Take 1 Uni vers 300 [...] Take 0.5-1 Univers ne 2 mg 3-02 03-25 tablets by ity o f tablet 00:00: [...] daily with meals. Flonase Flonase No Flonase [place] Allergy Allergy Allergy Commun i Relief [facility] Vital Signs Vital Name Observation Time Observation Value Comments Source Systolic blood 2020-05-27 20:09:00 115 mm[Hg] Univer sity [facility] Diastolic blood 2020-05-27 20:09:00 72 mm[Hg] Unive rsity [facility] Heart rate 2020-05-27 20:09:00 66 /min [facility] Body temperature 2020-05-27 20:09:00 36.61 [facility] Respiratory rate 2020-05-27 20:09:00 18 /min [facility] O[facility] saturation in 2020-05-27 20:09:00 100 /min [facility] Arterial blood by [facility] Pulse oximetry Branch Body weight 2020-05-27 08:49:00 71.986 kg [facility] BMI 2020-05-27 08:49:00 26.41 kg/m2 [facility] Body height 2020-05-26 15:43:00 165.1 cm [facility] BP Diastolic 2020-05-19 00:00:00 72 mm[Hg] [facility] s Height 2020-05-19 00:00:00 65 [in_i] [facility] s BMI (Body Mass 2020-05-19 00:00:00 25.7 kg/m2 [facility] s BP Systolic 2020-05-19 00:00:00 110 mm[Hg] [facility] s Body Weight 2020-05-19 00:00:00 2470.4 [oz_av] [facility] s Procedures Procedure Date / Time Performing Clinician Source Performed FERRITIN SERUM 2020-07-06 14:51:00 Niraj Farah [facility] IRON 2020-07-06 14:51:00 Niraj Farah [facility] VITAMIN B12, LEVEL 2020-07-06 14:51:00 Niraj Farah [facility] FOLATE 2020-07-06 14:51:00 Niraj Farah [facility] TOTAL IRON BINDING 2020-07-06 14:51:00 Niraj Farah [facility] COMP. METABOLIC PANEL 2020-07-06 14:51:00 Niraj Farah [facility] ([id number]) [facility] SEDIMENTATION RATE 2020-07-06 14:51:00 Niraj Farha [facility] CBC WITH DIFF 2020-07-06 14:51:00 Niraj Farah [facility] HEPATITIS B SURFACE 2020-07-06 14:51:00 Niraj Farah [facility] ANTIBODY [facility] HEPATITIS B SURFACE 2020-07-06 14:51:00 Niraj Farah [facility] ANTIGEN [facility] Branch HCV ANTIBODY 2020-07-06 14:51:00 Niraj Farah [facility] HBC ANTIBODY (IGM & IGG) 2020-07-06 14:51:00 Niraj Farah [facility] HAV ANTIBODY (IGG AND 2020-07-06 14:51:00 Niraj Farah [facility] IGM) [facility] VITAMIN D, 25-OH 2020-07-06 14:51:[address] [facility] HIV 1/2 AG-AB WITH REFLEX 2020-07-06 14:51:00 Zora Farah [facility] PHYSICIAN ORDERS 2020-07-06 05:01:00 Doctor Unassigned, [facility] [place] [facility] [place] UPPER GI SERIES 2020-06-02 13:50:17 Niraj Farah [facility] [place] BARIUM SWALLOW 2020-06-02 13:47:48 Soif marita [facility] ESOPHAGUS [facility] XR CHEST 2 VW 2020-05-27 19:03:43 Niraj Farah [facility] CLOSTRIDIUM DIFFICILE 2020-05-27 15:21:00 Jeremi Uzair [facility] TOXIN [facility] C-REACTIVE PROTEIN 2020-05-27 11:41:00 Blake Larkin [facility] BASIC METABOLIC PANEL 2020-05-27 11:41:00 Uzair Blood [facility] (NA, K, CL, CO2, GLUCOSE, Medica l Branch BUN, CREATININE, CA) CBC WITH DIFF 2020-05-27 11:41:00 Uzair Blood [facility] CT ABDOMEN PELVIS W 2020-05-26 11:22:32 Volodymyr Stacy [facility] CONTRAST Medical Branch LIPASE 2020-05-26 10:58:00 Singer Volodymyr [facility] COMP. METABOLIC PANEL 2020-05-26 10:58:00 Singer Volodymyr [facility] ([id number]) Medical Branch LIPID PANEL (84422)(TOTAL 2020-05-26 10:58:00 Volodymyr Stacy [facility] CHOLESTEROL, Medical Branch TRIGLYCERIDES, HDL) CBC WITH DIFF 2020-05-26 10:58:00 Singer [facility] [place] [facility] URINALYSIS 2020-05-26 10:58:00 Singer [facility] [place] [facility] COVID-19 (ID NOW RAPID 2020-05-26 10:58:00 Volodymyr Stacy [facility] TESTING) Medical Branch LAB ONLY COVID 2020-05-26 10:58:00 Volodymyr Stacy o f [place] INTERPRETATION [facility] NOTICE OF PRIVACY 2020-05-26 10:41:26 Doctor Lor Baez [facility] PRACTICES [place] [facility] CONSENT/REFUSAL FOR 2020-05-26 10:40:53 Doctor [facility] DIAGNOSIS AND TREATMENT [place] [facility] Plan of Care Planned Activity Planned Date Details Comments Source Diagnostic Test 2020-05-19 rapid SARS CoV 2 Ag, Swee [facility] Pending 00:00:00 QL [place], respiratory Hospital Clinics specimen [code = rapid SARS CoV 2 Ag, QL [place], respiratory specimen] Instructions [facility] s Encounters Start End Encounter Admission Attending Care Care Encounter Source Date/Time Date/Time Type Type Clinicians Facility Department ID 2021-01-02 Emergency [facility] [id number] Univers 08:03:57 ity of [facility] 2020-07-06 2020-07-06 Outpatient R KELLY [facility] [id number] Univers 10:15:00 10:15:00 NIRAJ Laughlin o f [facility] 2020-07-06 2020-07-06 [place] Hand 2, Adc Lab [facility] [id number] Univers 09:28:56 09:43:56 Visit Niraj Farah 350.1.1 3.10 ity of [place].686 [place] Profess[place] [id number] Or dical [facility] [address] 2020-07-06 2020-07-06 Orders Doctor THORPE [id number] Univers 00:00:00 00:00:00 Only CONOR Baez 350.1.13.10 ity of [place] [facility] 4.2.7.2.686 [place] [id number] [place] [address] Branch 2020-06-06 2020-06-06 Outpatient [facility] [id number] [place] 01:03:00 01:03:00 _L 404 Commun i ty Hospita l Clinics 2020-06-02 2020-06-02 [facility] [id number] Univers 07:45:20 23:59:00 Encounter Niraj laughlin 350.1.13.10 ity of [place] 4.2.7.2.686 [facility] [id number] [facility] 807 Branch 2020-06-02 2020-06-02 [facility] [id number] Univers 07:43:14 07:44:00 Encounter Niraj laughlin [id number] ity of [place] 4.2.7.2.686 [facility] [id number] [facility] 807 Branch 2020-06-02 2020-06-02 Outpatient R [facility] [id number] Univers 00:00:00 00:00:00 NIRAJ Laughlin o f [facility] 2020-05-26 2020-05-27 Emergency Volodymyr Stacy [facility] 1.2.840. [id number] Univers 05:43:00 17:47:00 Uzair Blood 350.1.13.10 ity of [place] 4.2.7.2.686 [facility] [id number] [facility] 081 Branch 2020-05-19 2020-05-19 Outpatient [facility] [id number] [place] 10:57:00 10:57:00 _L 317 Commun i ty Hospita l Clinics 2020-05-19 2020-05-19 Outpatient [facility] [id number] 00:00:00 00:00:00 , Sarahi [id number] Roselyn [id number] 2020-05-19 2020-05-19 Sarahi Dempsey [facility] [place] - [place] [id number] [place] 00:00:00 00:00:00 [facility]: Hospital - ty [address] [place] [address] [address], [place] [address] , Ph. 2020-04-10 2020-04-10 Laboratory Lab, Adc Fam Pob I [facility] 1.2. 840.114 [id number] Univers 09:24:25 09:44:25 Only [place], Caryl [facility] 350.1.13.10 ity of [place] 4.2.7.2.686 [place] Professio [id number] [address] Office Building One 2020-04-10 2020-04-10 Outpatient R [facility] [id number] Univers 09:40:00 09:40:00 ity [facility] 2020-04-10 2020-04-10 Letter Doctor MAURILIO 1.2.840.114 [id number] Univers 00:00:00 00:00:00 (Out) Unassigned, CONOR 350.1.13.10 ity of [place] [facility] 4.2.7.2.686 [place] [phone] [address] Results Test Description Test Time Test Comments Results Result Comments Source FOLATE 2020-07-07 01:36:38 Test Item Value Reference Range Interpretation Comme nts FOLATE SER (test code = 3068728426) >20.0 3.0-20.0 H Lab Interpretation (test code = 81004-0) [facility]2020-07-07 01:19:14 Test Item Value Reference Range Interpretation Comments HAV Total (test code = 8792026528) Negative HAVT Semi-Quantitative (test code = 6132206268) [facility] SURFACE [id number] 01:19:14 Test Item Value Reference Range Interpretation Comments HBsAB (test code = Positive 7373451176) HBsAb >1000.00 mIU/mL Semi-Quantitative (test code = 5667763331) MAT (test code = Interpretation: MAT) ?Hepatitis B Surface Antibody ? Negative - Patient is considered to be not immune to infection with HBV. ? ? Positive - Anti-HBs detected at greater than or equal to 12 mIU/mL. ?Patient is considered to be immune to infection with HBV. ? [facility] (IGM & IGG)2020-07-07 01:19:14 Test Item Value Reference Range Interpretation Comments HBC (test code = 6571489423) Negative HBC Semi-Quantitative (test code = 0263965749) [facility] [id number] 01:19:14 Test Item Value Reference Range Interpretation Comments HCV Ab (test code = 82052-5) Negative HCV Semi-Quantitative (test code = 87747-9) [facility] B12, [id number] 01:16:52 Test Item Value Reference Range Interpretation Comments VIT B12 (test code = 541 pg/mL 240-930 6413787970) MAT (test code = MAT) Biotin has been reported to cause a positive bias, interpret results relative to patient's use of biotin. Lab Interpretation (test Normal code = 13741-1) [facility] SURFACE [id number] 01:02:08 Test Item Value Reference Range Interpretation Comments HBsAg Semi-Quantitative (test code = Negative Negative 5195-3) [facility] D, [id number] 00:56:30 Test Item Value Reference Range Interpretation Comments VIT D 25OH (test code = 31 ng/mL 25-80 68891-4) MAT (test code = MAT) Deficiency: <20 ng/mLInsufficiency : 20-24 ng/mLOptimal: 25-80 ng/mL Lab Interpretation (test Normal code = 24950-8) [facility] TylerSEDIMENTATION [id number] 17:04:51 Test Item Value Reference Range Interpretation Comments ESR (test code = See_Comment H [Automated message] 2068866645) The system [employer] generated this result transmitted ref erence range: 0 - 10 m m/HR. The reference r rogelio was not used to interpret this result as normal/abnor mal. Lab Interpretation (test Abnormal code = 16533-5) [facility]2 AG-AB WITH [id number] 16:58:31 Test Item Value Reference Range Interpretation Comments HIV Negative Negative Semi-quantitative (test code = 77393-7) MAT (test code = Non-reactive for HIV-1 MAT) antigen and HIV-1/HIV-2 antibodies. ?No laboratory evidence of HIV infection. ?Repeat in 2-4 weeks if acute HIV infection is suspected. [facility] Tyler[facility]ERRITIN [id number] 16:52:32 Test Item Value Reference Range Interpretation Comments FERRITIN (test code = 44.8 ng/mL 18.0-464.0 6887424830) MAT (test code = MAT) Biotin has been reported to cause a negative bias, interpret results relative to patient's use of biotin. Lab Interpretation (test Normal code = 46731-8) [facility] Tyler[facility] IRON BINDING [id number] 16:35:27 Test Item Value Reference Range Interpretation Comments TIBC (test code = 9952255653) 231 ug/dL 250-410 L % FE SAT (test code = 3650909280) 19 % 20-50 L Lab Interpretation (test code = Abnormal 00188-7) [facility]. METABOLIC PANEL (98713)2020-07-06 16:17:22 Test Item Value Reference Range Interpretation Comments NA (test code = 142 mmol/L 135-145 1090233202) K (test code = 4.7 mmol/L 3.5-5.0 8168245357) CL (test code = 102 mmol/L 98-108 7505332177) CO2 TOTAL (test code 30 mmol/L 23-31 = 9686581112) AGAP (test code = 2-16 1686230177) BUN (test code = 12 mg/dL 7-23 8211221097) GLUCOSE (test code = 105 mg/dL 70-110 5478409324) CREATININE (test code 0.77 mg/dL 0.60-1.25 = 9828685857) TOTAL BILI (test code 0.4 mg/dL 0.1-1.1 = 4329333680) CALCIUM (test code = 9.6 mg/dL 8.6-10.6 0892807104) T PROTEIN (test code 7.1 g/dL 6.3-8.2 = 5624864349) ALBUMIN (test code = 4.3 g/dL 3.5-5.0 3555787106) ALK PHOS (test code = 74 U/L 34-122 2578831350) ALTv (test code = 27 U/L 5-50 1742-6) AST(SGOT) (test code 25 U/L 13-40 = 9542756042) eGFR (test code = mL/min/1.73m2 7807559987) MAT (test code = MAT) Association of [...] or urine or abnormalities in imaging tests). [id number] 16:16:46 Test Item Value Reference Range Interpretation Comments IRON (test code = 5824256963) 43 ug/dL 50-160 L Lab Interpretation (test code = Abnormal 78086-1) [facility] WITH [id number] 15:23:58 Test Item Value Reference Range Interpretation Comments WBC (test code = See_Comment [Automated 1858-2) message] The sy stem which generated this [...] RDW-SD (test code = 48.9 fL 38.5-51.6 63299-0) RDW-CV (test code = 15.9 % 12.1-15.4 H 788-0) PLT (test code = See_Comment [Automated 777-3) message] The sy stem which generated this result transmitted reference range : 150 - 328 10*3/ ?L. The reference r rogelio was not used to interpret this result as normal/abnormal . MPV (test code = 10.5 fL 9.8-13.0 85937-7) NRBC/100 WBC (test See_Comment [Automat ed code = 4999005378) message] The system which generated this result transmitted reference range : 0.0 - 10.0 /100 WBCs. The refer ence range was not u sed to interpret th is result as normal/abnormal . NRBC x10^3 (test code <0.01 See_Comment [Auto mated = 1658608184) message] The s ystem which generated this result transmitted reference range : 10*3/?L. The reference range was not used to interpret this result as normal/abnormal . GRAN MAT (NEUT) % 87.4 % (test code = 770-8) IMM GRAN % (test code 0.70 % = 9660422758) LYMPH % (test code = 8.3 % 736-9) MONO % (test code = 3.0 % 5905-5) EOS % (test code = 0.3 % 713-8) BASO % (test code = 0.3 % 706-2) GRAN MAT x10^3(ANC) 6.44 10*3/uL 1.99-6.95 (test code = 7149074749) IMM GRAN x10^3 (test 0.05 10*3/uL 0.00-0.06 code = 4355012084) LYMPH x10^3 (test code 0.61 10*3/uL 1.09-3.23 L = 731-0) MONO x10^3 (test code 0.22 10*3/uL 0.36-1.02 L = 742-7) EOS x10^3 (test code = <0.03 0.06-0.53 L 711-2) BASO x10^3 (test code <0.03 0.01-0.09 = 704-7) Lab Interpretation Abnormal (test code = 08128-4) [facility] UPPER GI [id number] 13:57:49HISTORY: Cough. Evaluate for GERD TECHNIQUE: Upper [...] duodenum or theproximal jejunum. CONCLUSIONS: Normal study. [facility], Radiant Results Inft User - 06/02/2020 8:58 [...] stomach, duodenum or theproximal jejunum. CONCLUSIONS: Normal study.[facility] BARIUM SWALLOW [id number] 13:55:03HISTORY: Chronic cough. Evaluate for GERD TECHNIQUE: Barium swallow/esophagram were obtained using ov erheadradiography technique as well as digital fluoroscopic technique done by dcwith the patient in multiple positions. FINDINGS: Swallowing [...] noted in the lower esophagus.Otherwise normal study. [facility], Radiant Results Inft User - 06/02/2020 8:56 AM CDTHISTORY: Chronic cough. Evaluate for GERDTECHNIQUE: Barium swallow/esophagram were obtained using overheadradiography technique as well as digital fluoroscopic technique done by dcwith the patient in multiple positions.FINDINGS: Swallowing function [...] noted in the lower esoph rashida.Otherwise normal study.[facility] TylerCLOSTRIDIUM DIFFICILE [id number] 20:33:34 Test Item Value Reference Range Interpretation Comments Clostridioides (Clostridium) Negative Negative difficile (test code = 62424-8) Lab Interpretation (test code = Normal 35745-2) [facility] TylerXR CHEST 2 [id number] 19:34:38No acute cardiopulmonary abnormality. PROCEDURE: XR CHEST 2 VW 05/27/2020 1:52 PM CLINICAL INDICATION: Cough COMPARISON: Radiograph of 05/03/2016 TECHNIQUE: PA and lateral views of the chest FINDINGS: Thelungs are clear. There is no pleural effusion. ?No pneumothorax. The cardiac size is normal. No aggressive osseous lesion. [facility], Radiant Results Inft User - 05/27/2020 2:35 PM CDTPROCEDURE: XR CHEST 2 VW 05/27/2020 1:52 PMCLINICAL INDICATION: Cough COMPARISON: Radiograph of 05/03/2016TECHNIQUE: PA and lateral views of the chestFINDINGS:The lungs are clear. There is no pleural effusion. No pneumothorax. The cardiac size is normal. No aggressive osseous lesion.IMPRESSIONNo acute cardiopulmonary abnormality.[facility]-REACTIVE [id number] 17:43:52 Test Item Value Reference Range Interpretation Comments CRP (test code = 0254770265) 13.4 mg/dL <0.8 H Lab Interpretation (test code = Abnormal 79090-6) [facility] Metabolic Panel (NA, K, CL, CO2, GLUCOSE, BUN, CREATININE, CA)2020-05-27 12:26:34 Test Item Value Reference Range Interpretation Comments NA (test code = 140 mmol/L 135-145 3660475443) K (test code = 4.5 mmol/L 3.5-5.0 6001847381) CL (test code = 105 mmol/L 98-108 3036629041) CO2 TOTAL (test code = 30 mmol/L 23-31 1832373188) AGAP (test code = 2-16 9327060318) BUN (test code = 7 mg/dL 7-23 8508067863) GLUCOSE (test code = 116 mg/dL 70-110 H 4380438981) CREATININE (test code = 0.96 mg/dL 0.60-1.25 4270498063) CALCIUM (test code = 8.7 mg/dL 8.6-10.6 0323434615) eGFR Calculation mL/min/1.73m2 (Non-) (test code = 7399483084) eGFR Calculation mL/min/1.73m2 () (test code = 4036524714) MAT (test code = MAT) Association of [...] tests). Lab Interpretation Abnormal (test code = 23370-0) [facility] with [id number] 12:15:11 Test Item Value Reference Range Interpretation Comments WBC (test code = See_Comment [Automated 9290-2) message] The sy stem which generated this result transmitted reference range : 4.20 - 10.70 10*3/?L. The reference range was not used to interpret this result as normal/abnormal . RBC (test code = See_Comment [Automated 009-8) message] The sy stem which generated this [...] RDW-SD (test code = 39.9 fL 38.5-51.6 52962-0) RDW-CV (test code = 13.4 % 12.1-15.4 788-0) PLT (test code = See_Comment [Automated 777-3) message] The sy stem which generated this result transmitted reference range : 150 - 328 10*3/ ?L. The reference r rogelio was not used to interpret this result as normal/abnormal . MPV (test code = 9.8 fL 9.8-13.0 30593-9) NRBC/100 WBC (test See_Comment [Automat ed code = 0623393484) message] The system which generated this result transmitted reference range : 0.0 - 10.0 /100 WBCs. The refer ence range was not u sed to interpret th is result as normal/abnormal . NRBC x10^3 (test code <0.01 See_Comment [Auto mated = 9332902729) message] The s ystem which generated this result transmitted reference range : 10*3/?L. The reference range was not used to interpret this result as normal/abnormal . GRAN MAT (NEUT) % 68.5 % (test code = 770-8) IMM GRAN % (test code 0.50 % = 7717521613) LYMPH % (test code = 15.5 % 736-9) MONO % (test code = 10.8 % 5905-5) EOS % (test code = 4.3 % 713-8) BASO % (test code = 0.4 % 706-2) GRAN MAT x10^3(ANC) 3.86 10*3/uL 1.99-6.95 (test code = 0832371445) IMM GRAN x10^3 (test 0.03 10*3/uL 0.00-0.06 code = 9785375550) LYMPH x10^3 (test code 0.87 10*3/uL 1.09-3.23 L = 731-0) MONO x10^3 (test code 0.61 10*3/uL 0.36-1.02 = 742-7) EOS x10^3 (test code = 0.24 10*3/uL 0.06-0.53 711-2) BASO x10^3 (test code <0.03 0.01-0.09 = 704-7) Lab Interpretation Abnormal (test code = 94419-1) [facility] ONLY COVID [id number] 03:03:50COVID DMT InterpretationInterpretation/Recommendations: Molecular NAAT Tests for [...] COVID-19 testing the patient has had at [facility], including molecular NAAT testing (more commonly known as PCR testing and Rapid ID Now testing) and antibody testing. It does not take into account any testingthat a patient has had outside of the [facility] medical record. [facility] LABORATORY SERVICESCOVID OicdcfdXJLX-VcU-4 NAAT (no units) ? ? Date ? Value ? 04/10/2020 ? Not Detected ? SARS-CoV-2 Rapid ID NOW (no units) ? ? Date ? Value ? 05/26/2020 ? Not Detected ? [facility] LABORATORY SERVICESUT Health TylerCT ABDOMEN PELVIS W [id number] 13:36:11 Extensive inflammatory changes involving the cecum [...] evidence of perforation.Preliminary Report Dictated by Resident: Kenji Buchanan, Eren Browne MD., have reviewed this study and agree with theove report.[facility] TylerURINALYSIS2021-03-24 11:37:30 Test Item Value Reference Range Interpretation Comments APPEARANCE (test code = Clear Clear 8852284252) COLOR (test code = Yellow Yellow 0156859758) PH (test code = 4.8-8.0 8987399360) SP GRAVITY (test code = 1.003-1.030 7665130304) GLU U QUAL (test code = Normal Normal 6558902753) BLOOD (test code = Negative Negative 4225326215) KETONES (test code = Negative Negative 6364667452) PROTEIN (test code = Negative Negative 2887-8) UROBILIN (test code = Normal Normal 0692000164) BILIRUBIN (test code = Negative Negative 4482422307) NITRITE (test code = Negative Negative 2811085528) LEUK ASHLEY (test code = Negative Negative 7155252978) RBC/HPF (test code = See_Comment [Autom ated message] 9080707381) The system [employer] generated this result transmitted ref erence range: 0 - 3 HP F. The reference range was not used to int erpret this result as normal/abnormal . WBC/HPF (test code = See_Comment [Autom ated message] 1873635647) The system [employer] generated this result transmitted ref erence range: 0 - 5 HP F. The reference range was not used to int erpret this result as normal/abnormal . BACTERIA (test code = Few Negative A 0122847897) MUCOUS (test code = Slight Negative LPF A 1398318754) Lab Interpretation (test Abnormal code = 12963-5) [facility] TylerCOMP. METABOLIC PANEL (93248)2020-05-26 11:37:05 Test Item Value Reference Range Interpretation Comments NA (test code = 134 mmol/L 135-145 L 7524552038) K (test code = 4.7 mmol/L 3.5-5.0 1059795117) CL (test code = 103 mmol/L 98-108 9408472760) CO2 TOTAL (test code = 28 mmol/L 23-31 5759301468) AGAP (test code = 2-16 5288386642) BUN (test code = 10 mg/dL 7-23 0930118679) GLUCOSE (test code = 113 mg/dL 70-110 H 2697636605) CREATININE (test code = 0.95 mg/dL 0.60-1.25 1481989921) TOTAL BILI (test code = 0.5 mg/dL 0.1-1.9 0880971367) CALCIUM (test code = 9.3 mg/dL 8.6-10.6 4964566633) T PROTEIN (test code = 7.8 g/dL 6.3-8.2 3054014982) ALBUMIN (test code = 4.2 g/dL 3.5-5.0 1781532281) ALK PHOS (test code = 96 U/L 34-122 8352898933) ALTv (test code = 21 U/L 5-50 1742-6) AST(SGOT) (test code = 24 U/L 13-40 6669471538) eGFR Calculation mL/min/1.73m2 (Non-) (test code = 0234739237) eGFR Calculation mL/min/1.73m2 () (test code = 0547027436) MAT (test code = MAT) Association of [...] tests). Lab Interpretation Abnormal (test code = 25240-8) [facility] TylerLIPID PANEL (21165)(TOTAL CHOLESTEROL, TRIGLYCERIDES, HDL)2020-05-26 11:29:56 Test Item Value Reference Range Interpretation Comments CHOL (test code = 143 mg/dL 120-200 3090987668) HDL (test code = 32 mg/dL >40 L 3782080038) HDLC RATIO (test code = See_Comment [Au tomated message] 2973307769) The system [employer] generated this result transmit maximilian reference range : <=5.0. The refe rence range was not u sed to interpret th is result as normal/abnormal . TRIG (test code = 85 mg/dL 30-170 9974931265) LDL CHOL (test code = 94 mg/dL See_Comment [Auto mated message] 90183-1) The system [employer] generated this result transmit maximilian reference range : <=160. The refe rence range was not u sed to interpret th is result as normal/abnormal . VLDL (test code = 17 mg/dL 5-60 3086061733) Lab Interpretation (test Abnormal code = 70346-5) [facility] TylerLIPASE2021-03-24 11:29:41 Test Item Value Reference Range Interpretation Comments LIPASE (test code = 0558846196) 41 U/L 0-220 Lab Interpretation (test code = Normal 68321-3) [facility] TylerCOVID-19 (ID NOW RAPID TESTING)2020-05-26 11:20:15 Test Item Value Reference Range Interpretation Comments SARS-CoV-2 Rapid ID NOW Not Detected Not Detected (test code = 87192-7) MAT (test code = MAT) ID NOW COVID-19 Assay is an isothermal nucleic acid amplification test intended for the qualitative detection of nucleic acid from SARS-CoV-2 viral RNA in nasopharyngeal (CBX OPERATOR) specimens. It is used under Emergency Use [...] indicated. Lab Interpretation Normal (test code = 53477-8) [facility] WITH [id number] 11:05:56 Test Item Value Reference Range Interpretation Comments WBC (test code = See_Comment H [Automated 8990-2) message] The system which generated this result transmit maximilian reference range : 4.20 - 10.70 10*3/?L. The reference range was not used to interpret this result as normal/abnormal . RBC (test code = See_Comment [Automated 409-8) message] The system which generated this result [...] (test code = 38.4 fL 38.5-51.6 L 52672-0) RDW-CV (test code = 13.3 % 12.1-15.4 788-0) PLT (test code = See_Comment H [Automated 777-3) message] The system which generated this result transmit maximilian reference range : 150 - 328 10*3/ ?L. The reference range was not u sed to interpret th is result as normal/abnormal . MPV (test code = 9.6 fL 9.8-13.0 L 81026-9) NRBC/100 WBC (test See_Comment [Automat ed code = 8718185490) message] The system which generated this result transmit maximilian reference range : 0.0 - 10.0 /100 WBCs. The reference range was not used to interpret this result as normal/abnormal . NRBC x10^3 (test code <0.01 See_Comment [Auto mated = 5164577811) message] The system which generated this result transmit maximilian reference range : 10*3/?L. The reference range was not used to interpret this result as normal/abnormal . GRAN MAT (NEUT) % 84.5 % (test code = 770-8) IMM GRAN % (test code 0.50 % = 2048748921) LYMPH % (test code = 5.7 % 736-9) MONO % (test code = 8.6 % 5905-5) EOS % (test code = 0.5 % 713-8) BASO % (test code = 0.2 % 706-2) GRAN MAT x10^3(ANC) 11.06 10*3/uL 1.99-6.95 H (test code = 9218063545) IMM GRAN x10^3 (test 0.07 10*3/uL 0.00-0.06 H code = 8007938510) LYMPH x10^3 (test code 0.74 10*3/uL 1.09-3.23 L = 731-0) MONO x10^3 (test code 1.12 10*3/uL 0.36-1.02 H = 742-7) EOS x10^3 (test code = 0.06 10*3/uL 0.06-0.53 711-2) BASO x10^3 (test code 0.03 10*3/uL 0.01-0.09 = 704-7) Lab Interpretation Abnormal (test code = 29896-2) [facility] TylerSARS-CoV-[facility] (COVID-19) Ag [Presence] in Respiratory specimen by Rapid [id number] 09:27:00 Test Item Value Reference Range Interpretation Comments SARS CoV 2 (test code = SARS CoV 2) negative [facility]"
[2022-10-24 14:15] LABS: Absolute Lymphocytes (CBC) 0.7 K/uL (0.7-4.9); Lymphocytes % 57.1 % (15.3-44.8); MCV 86.8 fL (80-100); MPV 9.7 fL (7.6-11.3); Platelets 69 thou/uL (152-406); RBC Red Blood Cell Count 5.53 M/uL (4.33-5.43)
[2022-10-24 14:20] LABS: Albumin 3.7 g/dL (3.4-5.0); Bilirubin Total 0.3 mg/dL (0.2-1.0); Potassium 4.2 mEq/L (3.5-5.1); Protein, Total 7.5 g/dL (6.4-8.2)
--- NOTE | 2022-10-24 14:53 | RAD REPORT ---
EXAM DESCRIPTION: RAD - Chest Pa And Lat (2 Views) - 10/24/2022 2:34 pm CLINICAL HISTORY: COUGH Chest pain. COMPARISON: Abdomen 1 View (KUB) dated 01/21/2022 FINDINGS: The lungs are clear. The heart is normal in size. No displaced fractures. IMPRESSION: No acute or concerning finding suspected.
[2022-10-24 15:53] LABS: Platelet Estimate DECR
[2022-10-24 15:54] LABS: Blood Morphology Comment NOT SEEN (NOT SEEN)
--- NOTE | 2022-10-24 16:32 | ER ---
Nurse's Notes [facility] Name: Jose Martin Fritz Age: 32 yrs Sex: Male : 1990 Arrival Date: 10/24/2022 Time: 13:28 Bed Treatment Private MD: Diagnosis: Leukopenia;Thrombocytopenia;Myalgia Presentation: 10/24 13:37 Chief complaint:. Chief complaint: Patient states: loss of appetite, nausea, fatigue X rs5 5 days. Pt reports taking Z pack. Coronavirus screen: congestion, nausea, Client presents with at least one sign or symptom that may indicate coronavirus-19. Ebola Screen: No symptoms or risks identified at this time. Initial Sepsis Screen: Does the patient meet any 2 criteria? No. Patient's initial sepsis screen is negative. Does the patient have a suspected source of infection? No. Patient's initial sepsis screen is negative. Risk Assessment: Do you want to hurt yourself or someone else? Patient reports no desire to harm self or others. Onset of symptoms was October 20, 2022. 13:37 Method Of Arrival: Ambulatory rs5 13:37 Acuity: FILIPE 3 rs5 Historical: - Allergies: 13:41 No Known Allergies; aa5 - PMHx: 13:41 chron's; rs5 - Immunization history:: Adult Immunizations up to date. - Social history:: Smoking status: Patient denies any tobacco usage or history of. Screenin:15 [facility] ED Fall Risk Assessment (Adult) History of falling in the last 3 months, tf2 including since admission No falls in past 3 months (0 pts) Confusion or Disorientation No (0 pts) Intoxicated or Sedated No (0 pts) Impaired Gait No (0 pts) Mobility Assist Device Used No (0 pt) Altered Elimination No (0 pt) Score/Fall Risk Level 0 - 2 = Low Risk. Abuse screen: Denies threats or abuse. Denies injuries from another. Nutritional screening: No deficits noted. Tuberculosis screening: No symptoms or risk factors identified. Assessment: 16:03 General: Appears in no apparent distress. well groomed. tf2 16:15 Pain: Complains of pain in generalized body aches. Neuro: No deficits noted. tf2 Cardiovascular: No deficits noted. Respiratory: No deficits noted. GI: Reports nausea. : No deficits noted. No signs and/or symptoms were reported regarding the genitourinary system. EENT: No deficits noted. Derm: No deficits noted. Musculoskeletal: No deficits noted. Vital Signs: 13:37 BP 113 / 92; Pulse 91; Resp 16; Temp 98.3; Pulse Ox 100% on R/A; Weight 70.31 kg (R); rs5 Height 5 ft. 5 in. ; Pain 7/10; 16:15 BP 113 / 85; Pulse 76; Resp 16; Pulse Ox 99% on R/A; tf2 18:27 BP 123 / 96; Pulse 80; Resp 16; Temp 98.9(O); Pulse Ox 100% on R/A; tf2 13:37 Body Mass Index 25.79 (70.31 kg, 165.1 cm) rs5 13:37 Pain Scale: Adult rs5 [place] Coma Score: 16:15 Eye Response: spontaneous(4). Motor Response: obeys commands(6). Verbal Response: tf2 oriented(5). Total: 15. ED Course: 13:29 Patient arrived in ED. kj1 13:37 Ian Castillo DO is Attending Physician. ms3 13:41 Triage completed. rs5 13:58 Inserted saline lock: 20 gauge in left forearm, using aseptic technique. Blood rs5 collected. 14:11 Selin Best, RN is Primary Nurse. tf2 14:36 Chest Pa And Lat (2 Views) XRAY In Process Unspecified. EDMS 15:10 [place] Screen Profile Sent. rs5 16:15 Awaiting lab results, Awaiting radiology results. tf2 16:15 No provider procedures requiring assistance completed. tf2 16:15 Patient has correct armband on for positive identification. Bed in low position. Call tf2 light in reach. Side rails up X 1. 16:39 initiated transfer to [facility] and [facility], pt was denied by sarah ROGERS due to no beds at [facility]. 16:51 initiated transfer to [facility]. bd 17:03 pt denied due to no beds at [facility]. bd 17:15 initiated transfer to [facility]. bd 18:12 Private physician pt accepted in transfer to [facility], by Dr Walls admin bd approval given by Tennille Gan.pt going to 925 bed 9B. 18:40 Called report to LAKSHMI Dempsey on 9B at [facility]; transfer consent completed and tf2 return to . Administered Medications: No medications were administered Medication: 16:15 VIS not applicable for this client. tf2 Outcome: 16:31 ER care complete, transfer ordered by . ms3 20:43 Transferred by ground EMS to [facility], Transfer form pf1 completed. X-rays sent w/ patient. Note: transferred to [facility] 20:43 Condition: stable 20:43 Instructed on the need for transfer, Patient report given to [facility]. Nurse report given per dayshift before shift change. 20:59 Patient left the ED. pf1 Signatures: Dispatcher [employer] EDMS Linda Kellogg Audri, RN RN aa5 Radha Briones kj1 Ian Castillo, DO ms3 Jacquie Min RN RN pf1 Elijah Lambert RN RN rs5 Selin Best RN RN tf2 Corrections: (The following items were deleted from the chart) 13:42 13:37 Chief complaint: Patient states: loss of appetite, nausea, fatigue X 4 days rs5 rs5 13:42 13:37 BP 113 / 92; Pulse 91bpm; Resp 16bpm; Pulse Ox 100% RA; Temp 98.3F; 70.31 kg rs5 Reported; Height 5 ft. 5 in.; BMI: 25.7; rs5
--- NOTE | 2022-10-24 16:32 | EDPHYS ---
Physician Documentation [facility] Name: Jose Martin Fritz Age: 32 yrs Sex: Male : 1990 Arrival Date: 10/24/2022 Time: 13:28 Bed Treatment Private MD: ED Physician Ian Castillo HPI: 10/24 13:59 This 32 yrs old Male presents to ER via Ambulatory with complaints of LOSS OF ms3 APPETITE/BODY FATIGUE. 13:59 32-year-old male with past medical history of Crohn's disease presents for 5 days of ms3 nausea, body aches, chills, fatigue. Patient states his body aches are rated an 8/10. Patient states he was started on a Z-Thor on Sunday after being seen at [facility] and had a negative COVID and flu test. Patient was seen at Dr. Obrien's office today and a respiratory panel was completed that was negative, and a strep test was negative. Patient denies alleviating factors. Patient denies inciting factors.. Historical: - Allergies: 13:41 No Known Allergies; aa5 - PMHx: 13:41 chron's; rs5 - Immunization history:: Adult Immunizations up to date. - Social history:: Smoking status: Patient denies any tobacco usage or history of. ROS: 13:59 Neck: Negative for injury, pain, and swelling, Cardiovascular: Negative for chest pain, ms3 and palpitations. Respiratory: Negative for shortness of breath, cough, wheezing, and pleuritic chest pain, Abdomen/GI: Negative for abdominal pain, nausea, vomiting, diarrhea, and constipation. 13:59 Constitutional: Positive for body aches, fatigue, malaise. 13:59 All other systems are negative. Exam: 13:59 Constitutional: This is a well developed, well nourished patient who is awake, alert, ms3 and in no acute distress. Head/Face: Normocephalic, atraumatic. Neck: Trachea midline, no cervical lymphadenopathy. Supple, full range of motion without nuchal rigidity, or vertebral point tenderness. No Meningismus. Chest/axilla: Normal chest wall appearance and motion. Nontender with no deformity. Cardiovascular: Regular rate and rhythm with a normal S1 and S2. No gallops, murmurs, or rubs. Normal PMI, no JVD. No pulse deficits. Respiratory: Lungs have equal breath sounds bilaterally, clear to auscultation and percussion. No rales, rhonchi or wheezes noted. No increased work of breathing, no retractions or nasal flaring. Abdomen/GI: Soft, non-tender, with normal bowel sounds. No distension or tympany. No guarding or rebound. No evidence of tenderness throughout. Skin: Warm, dry with normal turgor. Normal color with no rashes, no lesions, and no evidence of cellulitis. MS/ Extremity: Pulses equal, no cyanosis. Neurovascular intact. Full, normal range of motion. Vital Signs: 13:37 BP 113 / 92; Pulse 91; Resp 16; Temp 98.3; Pulse Ox 100% on R/A; Weight 70.31 kg (R); rs5 Height 5 ft. 5 in. ; Pain 7/10; 16:15 BP 113 / 85; Pulse 76; Resp 16; Pulse Ox 99% on R/A; tf2 18:27 BP 123 / 96; Pulse 80; Resp 16; Temp 98.9(O); Pulse Ox 100% on R/A; tf2 13:37 Body Mass Index 25.79 (70.31 kg, 165.1 cm) rs5 13:37 Pain Scale: Adult rs5 [place] Coma Score: 16:15 Eye Response: spontaneous(4). Motor Response: obeys commands(6). Verbal Response: tf2 oriented(5). Total: 15. MDM: 13:48 Patient medically screened. ms3 13:59 Differential Diagnosis Anemia vs PNA vs Viral illness. ms3 16:38 ED course: Discussed case with Dr Nava and patient will require transfer as [facility] does not have Hematology. . 16:40 ED course: JJ at [facility] transfer center states no beds at this time. Will try [facility] Luiz.. 16:41 Data reviewed: vital signs, nurses notes, lab test result(s), radiologic studies, and ms3 as a result, I will will transfer patient. Consideration of Admission/Observation Will transfer patient. Management of patient was discussed with the following: Hospitalist: Dr Nava- patient will need transfer for hematology due to leukopenia with predominance of lymphocytes and elevated blast cells, thrombocytopenia.. Care significantly affected by the following chronic conditions: Crohn's. Counseling: I had a detailed discussion with the patient and/or guardian regarding the historical points, exam findings, and any diagnostic results supporting the discharge/admit diagnosis, lab results, radiology results, the need to transfer to another facility, [facility] does not immediately have the required specialist. 17:08 ED course: [facility] without capacity at this time. Will attempt transfer to [address] 10/24 13:47 Order name: CBC with Diff; Complete Time: 16:17 ms3 10/24 13:47 Order name: CMP; Complete Time: 14:54 ms3 10/24 14:56 Order name: [place] Screen Profile; Complete Time: 16:17 ms3 10/24 15:54 Order name: Manual Differential; Complete Time: 16:17 EDMS 10/24 13:47 Order name: Chest Pa And Lat (2 Views) XRAY; Complete Time: 14:54 ms3 Administered Medications: No medications were administered Disposition Summary: 10/24/22 16:31 Transfer Ordered Reason: Higher level of care ms3 Condition: Stable ms3 Problem: new ms3 Symptoms: are unchanged ms3 Transfer Location: [facility](10/24/22 20:36) ms3 Accepting Physician: Dr Bermeo(10/24/22 20:59) pf1 Diagnosis - Leukopenia ms3 - Thrombocytopenia ms3 - Myalgia ms3 Forms: - Medication Reconciliation Form ms3 - SBAR form ms3 Signatures: Dispatcher [employer] EDWV Litzy Emerson RN RN aa5 Ian Castillo DO DO ms3 Jacquie Min RN RN pf1 Elijah Lambert RN RN rs5 Corrections: (The following items were deleted from the chart) 18:19 16:31 Dr patterson ms3 20:36 16:31 [facility] ms3 ms3 20:36 18:19 Dr Bermeo ms3 ms3 20:59 20:36 Dr Bermeo ms3 pf1
[2022-10-24 21:22] VITALS: BP 123/96; TEMP 98.9; O2SAT 100
== END 2022-10-24 20:59 | disposition short-term general hospital (02) ==
LOC: ER 13:28
DX: D72.819 Decreased white blood cell count, unspecified (principal); D69.6 Thrombocytopenia, unspecified; M79.10 Myalgia, unspecified site
CPT/HCPCS: 36415; 71046; 80053; 85025; 86308; 99285

== ENCOUNTER 2022-11-14 07:18 | Day surgery (SDC) | payer BC ==
[2022-11-14] MEDS ORDERED: ACETAMINOPHEN 500 MG TAB ONE (07:50)
[2022-11-14] MEDS ORDERED: DIPHENHYDRAMINE 25 MG TAB/CAP ONE (07:50)
[2022-11-14] MEDS ORDERED: NA CHLORIDE 0.9% 250 ML ONE (07:51)
[2022-11-14] MEDS ORDERED: INFLIXIMAB-ABDA 400 MG in NA CHLORIDE 0.9% 250 ML IV ONE (08:00)
[2022-11-14 08:14] VITALS: BMI 25.7
[2022-11-14 09:35] VITALS: O2SAT 100
[2022-11-14 12:37] VITALS: BP 103/65; TEMP 97.6
== END 2022-11-14 10:34 | disposition home or self-care (01) ==
LOC: DS 07:18
PROVIDERS: ATTEND Internal Medicine Gastroenterology
DX: K50.10 Crohn's disease of large intestine without complications (principal)
CPT/HCPCS: 96365; 96366; Q5104; J7050 ×2

== ENCOUNTER 2023-01-08 07:00 | Day surgery (SDC) | payer BC ==
[2023-01-08] MEDS ORDERED: DIPHENHYDRAMINE 25 MG TAB/CAP ONE (07:48)
[2023-01-08] MEDS ORDERED: ACETAMINOPHEN 500 MG TAB ONE (07:48)
[2023-01-08] MEDS ORDERED: NA CHLORIDE 0.9% 250 ML ONE (07:50)
[2023-01-08] MEDS ORDERED: INFLIXIMAB-ABDA 400 MG in NA CHLORIDE 0.9% 250 ML IV ONE (08:00)
[2023-01-08 09:15] VITALS: O2SAT 99; BMI 25.7
[2023-01-08 10:31] VITALS: BP 104/83; TEMP 98.2
== END 2023-01-08 10:22 | disposition home or self-care (01) ==
LOC: DS 07:00
PROVIDERS: ATTEND Internal Medicine Gastroenterology
DX: K50.10 Crohn's disease of large intestine without complications (principal)
CPT/HCPCS: 96365; 96366; Q5104; J7050 ×2

== ENCOUNTER 2023-04-04 08:00 | Day surgery (SDC) | payer BC ==
[2023-04-04] MEDS ORDERED: DIPHENHYDRAMINE 25 MG TAB/CAP ONE (08:26)
[2023-04-04] MEDS ORDERED: ACETAMINOPHEN 500 MG TAB ONE (08:26)
[2023-04-04 08:37] VITALS: O2SAT 100; BMI 25.4
[2023-04-04] MEDS ORDERED: NA CHLORIDE 0.9% 50 ML ONE (08:41)
[2023-04-04] MEDS ORDERED: NA CHLORIDE 0.9% IV ONE (09:00)
[2023-04-04] MEDS ORDERED: INFLIXIMAB IV ONE (09:00)
[2023-04-04 11:38] VITALS: BP 118/81; TEMP 97
== END 2023-04-04 11:18 | disposition home or self-care (01) ==
LOC: DS 08:00
PROVIDERS: ATTEND Internal Medicine Gastroenterology
DX: K50.10 Crohn's disease of large intestine without complications (principal)
CPT/HCPCS: 96365; 96366; J1745; J7050

== ENCOUNTER 2023-05-29 07:34 | Day surgery (SDC) | payer BC ==
[2023-05-29] MEDS: ACETAMINOPHEN 500 MG TAB ONE (08:03)
[2023-05-29] MEDS: INFLIXIMAB IV ONE (08:25)
[2023-05-29] MEDS: NA CHLORIDE 0.9% IV ONE (08:25)
[2023-05-29] MEDS: NA CHLORIDE 0.9% 50 ML ONE (10:30)
[2023-05-29 10:43] VITALS: BMI 25.7
[2023-05-29 11:12] VITALS: BP 116/73; TEMP 98.1; O2SAT 99
== END 2023-05-29 10:48 | disposition home or self-care (01) ==
LOC: DS 07:34
PROVIDERS: ATTEND Internal Medicine Gastroenterology
DX: K50.10 Crohn's disease of large intestine without complications (principal)
CPT/HCPCS: 96365; 96366; J1745; J7050

== ENCOUNTER 2023-07-27 08:50 | Day surgery (SDC) | payer BC ==
[2023-07-27] MEDS ORDERED: NA CHLORIDE 0.9% 250 ML ONE (09:12)
[2023-07-27] MEDS: ACETAMINOPHEN 500 MG TAB ONE (09:17)
[2023-07-27] MEDS: DIPHENHYDRAMINE 25 MG TAB/CAP ONE (09:17)
[2023-07-27] MEDS: INFLIXIMAB-ABDA 400 MG in NA CHLORIDE 0.9% 250 ML IV ONE (09:41)
[2023-07-27 10:39] VITALS: BMI 26.6
[2023-07-27 12:35] VITALS: BP 118/70; TEMP 97.4; O2SAT 99
== END 2023-07-27 12:15 | disposition home or self-care (01) ==
LOC: DS 08:50
PROVIDERS: ATTEND Internal Medicine Gastroenterology
DX: K50.10 Crohn's disease of large intestine without complications (principal)
CPT/HCPCS: 96365; 96366; Q5104; J7050 ×2

== ENCOUNTER 2023-09-27 07:44 | Day surgery (SDC) | payer BC ==
[2023-09-27] MEDS: DIPHENHYDRAMINE 25 MG TAB/CAP ONE (08:10)
[2023-09-27] MEDS: ACETAMINOPHEN 500 MG TAB ONE (08:10)
[2023-09-27] MEDS: INFLIXIMAB-ABDA 400 MG in NA CHLORIDE 0.9% 250 ML IV SCH (08:24)
[2023-09-27] MEDS ORDERED: NA CHLORIDE 0.9% 100 ML ONE (10:02)
[2023-09-27 20:14] VITALS: BP 133/68; TEMP 97.1; O2SAT 100; BMI 26.1
== END 2023-09-27 10:39 | disposition home or self-care (01) ==
LOC: DS 07:44
PROVIDERS: ATTEND Internal Medicine Gastroenterology
DX: K50.10 Crohn's disease of large intestine without complications (principal)
CPT/HCPCS: 96365; 96366; Q5104; J7050